=== PATIENT | male | born 1940 | race Caucasian/White ===

== ENCOUNTER 2017-10-24 10:53 | Inpatient (IN) | payer OTHER ==
[~2017-10-24] VITALS: Ht 180.3 cm; Wt 162.4 kg
[~2017-10-24 10:53] MED LIST: ARTIFICIAL TEAR15 M1 OPHTHALMIC; ASPIRIN EC325 M1 PO; ASPIRIN325 PO; ATORVASTATIN CA10 MG PO; CARVEDILOL12.5 MG PO; INDOMETHACIN SR75 M1 PO; LISINOPRIL20 MG PO; NORVASC10 MG PO; PREDNISONE 10 M10 M1 PO
[2017-10-24 11:07] VITALS: BP 190/95
[2017-10-24] MEDS ORDERED: HYDROCHLOROTH12.5 M1 PO (11:20)
[2017-10-24 11:38] LABS: BE -2.9 mmol/L (-2 to +3); HCO3 27.2 mmol/L (22.0-26.0)
[2017-10-24 11:39] LABS: PCO2 70.6 mmHg (35.0-45.0); PO2 125.4 mmHg (75.0-100.0); pH 7.203 (7.340-7.450)
[2017-10-24 12:04] LABS: MCH 31.5 pg (26.0-34.0); MCHC 34.1 g/dL (28.0-37.0); MCV 92.5 fL (80.0-100.0); MPV 9.2 fl. (7.2-11.1); NUCLEATED RBCS 0 /100WBC; PLATELET COUNT* 192 thou/uL (150-400); RBC 4.76 mil/uL (4.50-6.00); RDW-CV 13.9 % (10.5-14.5); WBC 9.9 thou/uL (4.0-11.0)
[2017-10-24 12:20] LABS: CALCIUM 8.2 mg/dL (8.5-10.1); CREATININE 0.9 mg/dL (0.6-1.3); POTASSIUM 3.9 mmol/L (3.5-5.1)
[2017-10-24 12:25] LABS: ALBUMIN 3.6 g/dL (3.4-5.0); MAGNESIUM 1.7 mg/dL (1.8-2.4); TOTAL BILIRUBIN 0.6 mg/dL (<0.1-1.0); TOTAL PROTEIN 6.9 g/dL (6.4-8.2)
[2017-10-24 12:41] LABS: ABSOLUTE MONOCYTES 0.4 thou/uL (0.0-1.2); ABSOLUTE NEUTROPHILS 8.5 thou/uL (1.6-8.1)
[2017-10-24 12:42] LABS: LARGE PLATELETS OCCASIONAL; PLATELET ESTIMATE ADEQUATE
[2017-10-24 13:40] LABS: INFLUENZA B ANTIGEN None Detected (None Detect)
[2017-10-24 14:24] LABS: BE 1.4 mmol/L (-2 to +3); PO2 106.6 mmHg (75.0-100.0)
[2017-10-24 14:33] LABS: PCO2 64.8 mmHg (35.0-45.0); pH 7.283 (7.340-7.450)
[2017-10-24 16:00] LABS: URINE BILIRUBIN NEGATIVE (Negative); URINE BLOOD 1+ (Negative); URINE CLARITY CLEAR; URINE COLOR YELLOW; URINE GLUCOSE-RANDOM NEGATIVE (Negative); URINE KETONES NEGATIVE (Negative); URINE LEUKOCYTES-REFLEX NEGATIVE (Negative); URINE NITRITE-REFLEX NEGATIVE (Negative); URINE PROTEIN 1+ (Negative); URINE SPECIFIC GRAVITY 1.015 (1.005-1.030); URINE UROBILINOGEN 0.2 E.U./dl (0.2-1.0)
--- NOTE | 2017-10-24 16:06 | 2DMMODE ---
[place] [address] 2 D/M-MODE ECHOCARDIOGRAM Name: JENNIFER NELSON Room: [address] IN [facility]#: [id number] Admission: 10/24/17 Attend Phys: Whitley Potter, Discharge: Date of : 40 Date of Service: 10/24/17 1606 Report #: [id number] THIS REPORT FOR: //name// APPROVED REPORT Study performed: 10/24/2017 14:52:50 EXAM: Comprehensive 2D, Doppler, and color-flow Echocardiogram Patient Location: In-Patient Room #: ER Status: routine BSA: 2.90 HR: 51 bpm BP: 104/56 mmHg Rhythm: NSR Other Information Technically limited study due to body habitus, poor endocardial definition, inability to position patient. Indications Cardiomegaly Echo Enhancing Agent Indication: Endocardial border delineation Agent(s) / Amount(s) Used: Optison 3 cc 2D Dimensions LVEF(%): 69.17 (>50%) IVSd: 17.10 (7-11mm) LVOT Diam: 19.61 (18-24mm) LVDd: 55.61 mm PWd: 14.22 (7-11mm) Ascending Ao: 37.42 (22-36mm) LVDs: 33.75 (25-40mm) Aortic Root: 39.90 mm Alvarado's LVEF: 69.17 % Pulmonary Valve PV Peak Canelo.: 0.86 m/s PV Peak Gr.: 2.96 mmHg Left Ventricle The left ventricle is normal size. There is normal LV segmental wall motion. There is normal left ventricular wall thickness. The left ventricular systolic function is normal. The left ventricular ejection fraction is within the normal range. LVEF is 60%. [place] [address] 2 D/M-MODE ECHOCARDIOGRAM Name: JENNIFER NELSON Room: [address] IN .R.#: [id number] Admission: 10/24/17 Attend Phys: Whitley Potter, Discharge: Date of : 40 Date of Service: 10/24/17 1606 Report #: [id number] is not technically sufficient to allow evaluation of the LV diastolic function due to atrial fibrillation. Right Ventricle The right ventricle is normal size. The right ventricular systolic function is normal. Atria The left atrium size is normal. The right atrium size is normal. Aortic Valve Mild aortic valve sclerosis. No aortic regurgitation is present. There is no aortic valvular stenosis. Mitral Valve The mitral valve is normal in structure. Tricuspid Valve The tricuspid valve is normal in structure. Pulmonic Valve The pulmonary valve is normal in structure. Pericardium There is no pericardial effusion. <Conclusion> The left ventricle is normal size. There is normal left ventricular wall thickness. The left ventricular systolic function is normal. The left ventricular ejection fraction is within the normal range. LVEF is 60%. This study is not technically sufficient to allow evaluation of the LV diastolic function due to atrial fibrillation. The right ventricle is normal size. The left atrium size is normal. Mild aortic valve sclerosis. There is no aortic valvular stenosis. The mitral valve is normal in structure. The tricuspid valve [place] [address] 2 D/M-MODE ECHOCARDIOGRAM Name: JENNIFER NELSON Room: [address] IN M.R.#: [id number] Admission: 10/24/17 Attend Phys: Whitley Potter, Discharge: Date of : 40 Date of Service: 10/24/171605 Report #: [id number] There is no pericardial effusion. There is normal LV segmental wall motion. <ELECTRONICALLY SIGNED> By: Angelo Saravia MD, FACC 10/24/171605 05 05 Angelo Saravia MD, FACC /INF
[2017-10-24 16:15] LABS: HYALINE CASTS 0-3 Few /LPF (None Seen); MUCUS None Seen strn/LPF (None Seen); SQUAMOUS 0-3 Few /LPF (0-3); URINE RBC 0-2 Rare /HPF (0-2)
[2017-10-24 16:16] LABS: BACTERIA-REFLEX 1-9 Few /HPF (None Seen); CRYSTALS None Seen /LPF (None Seen); URINE WBC-REFLEX 0-5 Rare /HPF (0-5)
[2017-10-24 16:45] VITALS: BP 151/85
[2017-10-24 16:52] VITALS: BP 173/79
--- NOTE | 2017-10-24 17:08 | EKG ---
[place] [address] ELECTROCARDIOGRAM REPORT Name: JENNIFER NELSON Room: [address] ADM IN M.R.#: [id number] Admission: 10/24/17 Attend Phys: Whitley Potter MD Discharge: Date of : 40 Report #: [id number] THIS REPORT FOR: //name// [facility] ED Test Date: 2017-10-24 Test Time: 11:29:11 Pat Name: JENNIFER NELSON Department: Room: [facility] Gender: Field Engineer: Luis E URIARTE : 1940 Requested By: Samia Armendariz Order Number: [id number] MD: Angelo Saravia Measurements Intervals [place] Rate: 71 P: [place]: QRS: 45 QRSD: 134 T: 25 QT: 427 QTc: 465 Interpretive Statements Atrial fibrillation IVCD, consider atypical RBBB Repol abnrm suggests ischemia, diffuse leads Possible ischemia now present ST (T wave) deviation now present Electronically Signed On 10-24-2017 17:07:52 CLINICAL STAFF EDUCATOR by Angelo Saravia [email or web address] <ELECTRONICALLY SIGNED> By: Angelo Saravia MD, [facility] 10/24/17 1707 1129 1129 Angelo Saravia MD, [facility] /EPI
[2017-10-24] MEDS ORDERED: ASPIR-TRIN325 MG PO (19:59)
[2017-10-24 20:00] VITALS: BP 153/78
[2017-10-25] VITALS: BP 160/74
[2017-10-25 04:01] VITALS: BP 138/79
[2017-10-25 04:59] LABS: HEMATOCRIT 42.4 % (42.0-52.0); HEMOGLOBIN 14.3 gm/dL (14.0-18.0); MCH 31.3 pg (26.0-34.0); MCHC 33.7 g/dL (28.0-37.0); MCV 92.9 fL (80.0-100.0); MPV 10.1 fl. (7.2-11.1); RBC 4.56 mil/uL (4.50-6.00); RDW-CV 14.3 % (10.5-14.5); WBC 8.9 thou/uL (4.0-11.0)
[2017-10-25 05:02] LABS: CREATININE 0.9 mg/dL (0.6-1.3); POTASSIUM 3.8 mmol/L (3.5-5.1)
[2017-10-25 05:06] LABS: ALBUMIN 3.1 g/dL (3.4-5.0); TOTAL BILIRUBIN 0.5 mg/dL (<0.1-1.0); TOTAL PROTEIN 6.2 g/dL (6.4-8.2)
[2017-10-25 05:38] LABS: BE 3.8 mmol/L (-2 to +3); HCO3 28.1 mmol/L (22.0-26.0); PCO2 41.1 mmHg (35.0-45.0); PO2 76.9 mmHg (75.0-100.0); pH 7.453 (7.340-7.450)
[2017-10-25 08:00] VITALS: BP 159/88
[2017-10-25 12:00] VITALS: BP 178/87
[2017-10-25 16:00] VITALS: BP 192/86
[2017-10-25 19:50] VITALS: BP 169/83
[2017-10-26] VITALS: BP 139/81
[2017-10-26 04:00] VITALS: BP 147/77
[2017-10-26 04:06] LABS: BE 5.7 mmol/L (-2 to +3); HCO3 29.9 mmol/L (22.0-26.0); PCO2 41.8 mmHg (35.0-45.0); PO2 71.3 mmHg (75.0-100.0); pH 7.472 (7.340-7.450)
[2017-10-26 05:40] LABS: HEMATOCRIT 42.4 % (42.0-52.0); MCH 30.8 pg (26.0-34.0); MCHC 33.1 g/dL (28.0-37.0); MCV 92.9 fL (80.0-100.0); RBC 4.56 mil/uL (4.50-6.00); RDW-CV 14.5 % (10.5-14.5); WBC 13.9 thou/uL (4.0-11.0)
[2017-10-26 05:51] LABS: CALCIUM 8.1 mg/dL (8.5-10.1); POTASSIUM 3.6 mmol/L (3.5-5.1); TOTAL BILIRUBIN 0.5 mg/dL (<0.1-1.0); TOTAL PROTEIN 6.1 g/dL (6.4-8.2)
[2017-10-26 08:45] VITALS: BP 172/88
[2017-10-26 12:00] VITALS: BP 111/81
[2017-10-26 16:00] VITALS: BP 181/84
[2017-10-26 20:00] VITALS: BP 170/89
[2017-10-27] VITALS: BP 159/82
[2017-10-27 04:00] VITALS: BP 136/68
[2017-10-27 05:07] LABS: BE 2.7 mmol/L (-2 to +3); HCO3 27.1 mmol/L (22.0-26.0); PCO2 40.9 mmHg (35.0-45.0); PO2 92.1 mmHg (75.0-100.0); pH 7.439 (7.340-7.450)
[2017-10-27 09:09] VITALS: BP 182/85
[2017-10-27 10:01] LABS: HEMATOCRIT 45.4 % (42.0-52.0); HEMOGLOBIN 14.7 gm/dL (14.0-18.0); MCH 30.9 pg (26.0-34.0); MCHC 32.4 g/dL (28.0-37.0); MCV 95.5 fL (80.0-100.0); RBC 4.76 mil/uL (4.50-6.00); RDW-CV 14.8 % (10.5-14.5); WBC 16.4 thou/uL (4.0-11.0)
[2017-10-27 10:13] LABS: ALBUMIN 3.1 g/dL (3.4-5.0); CALCIUM 8.1 mg/dL (8.5-10.1); MAGNESIUM 2.3 mg/dL (1.8-2.4); TOTAL BILIRUBIN 0.8 mg/dL (<0.1-1.0); TOTAL PROTEIN 6.6 g/dL (6.4-8.2)
[2017-10-27 10:29] LABS: POTASSIUM 3.3 mmol/L (3.5-5.1)
[2017-10-27 12:00] VITALS: BP 180/83
[2017-10-27] MEDS ORDERED: FLOMAX0.4 MG PO (12:33)
[2017-10-27] MEDS ORDERED: OSELB75 PO (12:33)
[2017-10-27] MEDS ORDERED: DOXYCYCLINE 10100 MG PO (12:33)
[2017-10-27] MEDS ORDERED: PREDNISONE 20 M20 MG PO (12:33)
[2017-10-27 13:53] VITALS: BP 180/83
[2017-10-28 09:30] VITALS: BP 180/83
== END 2017-10-27 15:23 | disposition home health service (06) | DRG 871 ==
LOC: M.ERS 10:53 → M.TBA-ER 13:39 → M.2W 13:39
PROVIDERS: Personal Emergency Response Attendant; ADMIT Internal Medicine
PROC: 5A09357 Assistance with Respiratory Ventilation, Less than 24 Consecutive Hours, Continuous Positive Airway Pressure (ICD-10-PCS; 2017-10-24)
PROC: 5A09357 Assistance with Respiratory Ventilation, Less than 24 Consecutive Hours, Continuous Positive Airway Pressure (ICD-10-PCS; principal; 2017-10-26)
PROC: 5A09357 Assistance with Respiratory Ventilation, Less than 24 Consecutive Hours, Continuous Positive Airway Pressure (ICD-10-PCS; 2017-10-27)
DX: A41.9 Sepsis, unspecified organism (principal); J96.91 Respiratory failure, unspecified with hypoxia; G93.41 Metabolic encephalopathy; J96.92 Respiratory failure, unspecified with hypercapnia; L03.116 Cellulitis of left lower limb; E87.1 Hypo-osmolality and hyponatremia; L03.115 Cellulitis of right lower limb; I48.91 Unspecified atrial fibrillation; M10.9 Gout, unspecified; E83.42 Hypomagnesemia; J11.1 Influenza due to unidentified influenza virus with other respiratory manifestations; I11.9 Hypertensive heart disease without heart failure; Z79.899 Other long term (current) drug therapy; Z90.49 Acquired absence of other specified parts of digestive tract; Z88.8 Allergy status to other drugs, medicaments and biological substances; Z87.891 Personal history of nicotine dependence; Z28.21 Immunization not carried out because of patient refusal

== ENCOUNTER → 2018-01-16 | Outpatient (CLI) | payer OTHER ==
[~2018-01-16] MED LIST changes: +ACCUNEB SO1.25 MG/1 INH; +ALLOPURINOL 10100 M1 PO; +ASPIR 8181 MG PO; +ASPIR-TRIN325 MG PO; +COZAAR 50 MG TA50 M2 PO; +DOXYCYCLINE 10100 MG PO; +FLOMAX0.4 MG PO; +HYDROCHLOROTH12.5 M1 PO; +KLOR-CON 1010 MEQ PO; +LASIX 40 MG TAB40 M2 PO; +LEVAQUIN 750 M750 MG PO; +MAGOX 400400 MG PO; +MINOCIN50 MG PO; +OSELB75 PO; +PREDNISONE 10 M10 MG PO; +PREDNISONE 20 M20 MG PO; +SAW PALMETTO450 MG PO; +VENTOLIN HFA INH8 GM INH; +XARELTO10 MG PO; +XARELTO20 MG PO
== END ==
LOC: M.ULTRA 13:00
DX: L97.919 Non-pressure chronic ulcer of unspecified part of right lower leg with unspecified severity (principal); L97.929 Non-pressure chronic ulcer of unspecified part of left lower leg with unspecified severity; I10 Essential (primary) hypertension; I48.91 Unspecified atrial fibrillation

== ENCOUNTER → 2018-01-20 | Outpatient (CLI) | payer OTHER ==
[2018-01-20 15:47] LABS: CALCIUM 8.8 mg/dL (8.5-10.1); CREATININE 1.5 mg/dL (0.6-1.3); POTASSIUM 4.5 mmol/L (3.5-5.1)
== END ==
LOC: M.LAB 15:12
PROVIDERS: Nurse Practitioner
DX: I50.32 Chronic diastolic (congestive) heart failure (principal)

== ENCOUNTER 2018-04-20 23:10 | Inpatient (IN) | payer OTHER ==
[~2018-04-20] VITALS: Ht 180.3 cm; Wt 167.8 kg
[2018-04-20 23:10] VITALS: BP 193/85
[~2018-04-20 23:10] MED LIST changes: -ACCUNEB SO1.25 MG/1 INH; -ALLOPURINOL 10100 M1 PO; -ASPIR 8181 MG PO; -COZAAR 50 MG TA50 M2 PO; -KLOR-CON 1010 MEQ PO; -LASIX 40 MG TAB40 M2 PO; -LEVAQUIN 750 M750 MG PO; -MAGOX 400400 MG PO; -MINOCIN50 MG PO; -PREDNISONE 10 M10 MG PO; -SAW PALMETTO450 MG PO; -VENTOLIN HFA INH8 GM INH; -XARELTO10 MG PO; -XARELTO20 MG PO
[2018-04-20] MEDS ORDERED: XARELTO10 MG PO (23:22)
[2018-04-20] MEDS ORDERED: KLOR-CON 1010 MEQ PO (23:22)
[2018-04-20] MEDS ORDERED: LASIX 40 MG TAB40 M2 PO (23:23)
[2018-04-20] MEDS ORDERED: MAGOX 400400 MG PO (23:23)
[2018-04-20] MEDS ORDERED: COZAAR 50 MG TA50 M2 PO (23:24)
[2018-04-20] MEDS ORDERED: SAW PALMETTO450 MG PO (23:25)
[2018-04-20 23:51] LABS: HEMATOCRIT 44.7 % (42.0-52.0); HEMOGLOBIN 14.9 gm/dL (14.0-18.0); MCH 31.2 pg (26.0-34.0); MCHC 33.3 g/dL (28.0-37.0); MCV 93.8 fL (80.0-100.0); MPV 9.7 fl. (7.2-11.1); NUCLEATED RBCS 0 /100WBC; PLATELET COUNT* 223 thou/uL (150-400); RBC 4.76 mil/uL (4.50-6.00); RDW-CV 14.2 % (10.5-14.5); WBC 15.1 thou/uL (4.0-11.0)
[2018-04-20 23:59] LABS: BE -0.6 mmol/L (-2 to +3); HCO3 25.4 mmol/L (22.0-26.0); PCO2 46.6 mmHg (35.0-45.0); pH 7.354 (7.340-7.450)
[2018-04-21 00:04] LABS: PO2 320.2 mmHg (75.0-100.0)
[2018-04-21 00:07] LABS: ANION GAP 6 mmol/L (7-16); BUN 24 mg/dL (7-18); CALCIUM 8.8 mg/dL (8.5-10.1); CHLORIDE 100 mmol/L (98-107); CO2 28 mmol/L (21-32); CREATININE 1.3 mg/dL (0.6-1.3); GLUCOSE 219 mg/dL (70-99); POTASSIUM 4.3 mmol/L (3.5-5.1); SODIUM 134 mmol/L (136-145)
[2018-04-21 00:18] LABS: ALBUMIN 3.2 g/dL (3.4-5.0); ALKALINE PHOSPHATASE 101 U/L (46-116); NT-PRO BRAIN NAT PEPTIDE 402 pg/mL (<300); SGOT 19 U/L (15-37); SGPT 16 U/L (30-65); TOTAL BILIRUBIN 0.4 mg/dL (<0.1-1.0); TOTAL PROTEIN 7.3 g/dL (6.4-8.2); TROPONIN-I LEVEL <0.06 ng/mL (<0.06)
[2018-04-21 00:19] LABS: URINE BILIRUBIN NEGATIVE (Negative); URINE BLOOD NEGATIVE (Negative); URINE CLARITY CLEAR; URINE COLOR YELLOW; URINE GLUCOSE-RANDOM NEGATIVE (Negative); URINE KETONES NEGATIVE (Negative); URINE LEUKOCYTES-REFLEX NEGATIVE (Negative); URINE NITRITE-REFLEX NEGATIVE (Negative); URINE PROTEIN NEGATIVE (Negative); URINE SPECIFIC GRAVITY 1.015 (1.005-1.030); URINE UROBILINOGEN 0.2 E.U./dl (0.2-1.0)
[2018-04-21 00:24] LABS: INR 1.3; PROTIME 12.3 Seconds (9.20-11.50)
[2018-04-21 01:02] LABS: ABSOLUTE BASOPHILS 0.2 thou/uL (0.0-0.2); ABSOLUTE LYMPHOCYTES 0.5 thou/uL (0.8-5.3); ABSOLUTE MONOCYTES 0.3 thou/uL (0.0-1.2); ABSOLUTE NEUTROPHILS 14.2 thou/uL (1.6-8.1); PLATELET ESTIMATE ADEQUATE
[2018-04-21 01:03] LABS: TOXIC GRANULATION 1+
[2018-04-21 01:55] VITALS: BP 137/66
[2018-04-21 02:15] VITALS: BP 129/60
[2018-04-21 04:00] VITALS: BP 131/72
[2018-04-21 08:00] VITALS: BP 152/77
--- NOTE | 2018-04-21 10:25 | EKG ---
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: 00 : 1940 Requested By: Jess Peacock Order Number: [id number] MD: Markell Archer Measurements Intervals [place] Rate: 102 P: [place]: QRS: -17 QRSD: 94 T: 33 QT: 335 QTc: 437 Interpretive Statements afib Inferior infarct, old Anteroseptal infarct, old Compared to ECG 10/24/2017 11:29:11 Myocardial infarct finding now present Atrial fibrillation no longer present Early repolarization no longer present Possible ischemia no longer present Electronically Signed On 04-21-2018 10:25:32 CDT by Markell Archer [email or web address] <ELECTRONICALLY SIGNED> By: Markell Archer MD, FACC 04/21/18 1025 2314 2314 Markell Archer MD, FAC /EPI
[2018-04-21 12:49] VITALS: BP 130/43
[2018-04-21 13:25] LABS: CALCIUM 8.7 mg/dL (8.5-10.1); CREATININE 1.3 mg/dL (0.6-1.3); MAGNESIUM 1.6 mg/dL (1.8-2.4); POTASSIUM 4.6 mmol/L (3.5-5.1); TOTAL BILIRUBIN 0.5 mg/dL (<0.1-1.0); TOTAL PROTEIN 7.3 g/dL (6.4-8.2)
--- NOTE | 2018-04-21 16:47 | 2DMMODE ---
[place] [address] 2 D/M-MODE ECHOCARDIOGRAM Name: JENNIFER NELSON Room: [address] IN [facility]#: [id number] Admission: 04/21/18 Attend Phys: Parth Bucio Discharge: Date of : 40 Date of Service: 04/21/18 1646 Report #: [id number] THIS REPORT FOR: //name// APPROVED REPORT Study performed: 04/21/2018 15:44:12 EXAM: Comprehensive 2D, Doppler, and color-flow Echocardiogram Patient Location: In-Patient Room #: 210 Status: routine BSA: 2.73 HR: 76 bpm BP: 130/43 mmHg Rhythm: Atrial Fibrillation Other Information Study Quality: Poor Technically limited study due to body habitus, inability to position patient. Indications Atrial Fibrillation Dyspnea 2D Dimensions LVEF(%): 66.22 (>50%) IVSd: 18.84 (7-11mm) LVOT Diam: 20.38 (18-24mm) LVDd: 46.10 mm PWd: 15.84 (7-11mm) LVDs: 29.30 (25-40mm) Aortic Root: 38.01 mm Alvarado's LVEF: 66.22 % Pulmonary Valve PV Peak Canelo.: 1.03 m/s PV Peak Gr.: 4.22 mmHg Tricuspid Valve RAP Estimate: 5.00 mmHg TR Peak Gr.: 35.87 mmHg RVSP: 40.87 mmHg PA Pressure: 40.87 mmHg Left Ventricle The left ventricle is normal size. There is normal LV segmental wall motion. Moderate concentric left [place] [address] 2 D/M-MODE ECHOCARDIOGRAM Name: JENNIFER NELSON Room: [address] IN [facility]#: [id number] Admission: 04/21/18 Attend Phys: Parth Bucio Discharge: Date of : 40 Date of Service: 04/21/18 1646 Report #: [id number] ventricular systolic function is normal. The left ventricular ejection fraction is within the normal range. LVEF is 60-65%. This study is not technically sufficient to allow evaluation of the LV diastolic function due to atrial fibrillation. Right Ventricle Right ventricle is mildly dilated. The right ventricular systolic function is normal. Atria Left atrium is moderately dilated. The right atrium size is normal. Aortic Valve The aortic valve is not well visualized. Aortic valve is grossly normal in structure. No aortic regurgitation is present. There is no aortic valvular stenosis. Mitral Valve The mitral valve is normal in structure. There is no mitral valve regurgitation noted. No evidence of mitral valve stenosis. Tricuspid Valve The tricuspid valve is normal in structure. Mild tricuspid regurgitation. Moderate pulmonary hypertension. Pulmonic Valve Pulmonic valve is not well visualized. Trace pulmonic regurgitation. Great Vessels The aortic root is normal in size. IVC is normal in size and collapses with >50% inspiration Pericardium There is no pericardial effusion. <Conclusion> Techinically limited study. LVEF is 60-65%. There is normal LV segmental wall motion. Left atrium is moderately dilated. No evidence of mitral valve stenosis. There is no mitral valve regurgitation noted. Right ventricle is mildly dilated. The aortic valve [place] [address] 2 D/M-MODE ECHOCARDIOGRAM Name: LESLIEJENNIFER E Room: [address] IN .R.#: [id number] Admission: 04/21/18 Attend Phys: Parth Bucio Discharge: Date of : 40 Date of Service: 04/21/181645 Report #: [id number] Aortic valve is grossly normal in structure. No aortic regurgitation is present. <ELECTRONICALLY SIGNED> By: Markell Archer MD, [facility] 04/21/181645 45 45 Markell Archer MD, FACC /INF
[2018-04-21 20:33] VITALS: BP 126/51
[2018-04-22] VITALS: BP 124/40
[2018-04-22 04:00] VITALS: BP 146/69
[2018-04-22 04:45] LABS: ABSOLUTE BASOPHILS 0.1 thou/uL (0.0-0.2); ABSOLUTE LYMPHOCYTES 0.9 thou/uL (0.8-5.3); ABSOLUTE MONOCYTES 0.4 thou/uL (0.0-1.2); BASOPHILS 0.6 %; HEMATOCRIT 42.2 % (42.0-52.0); HEMOGLOBIN 13.7 gm/dL (14.0-18.0); LYMPHOCYTES 6.2 %; MCH 30.8 pg (26.0-34.0); MCHC 32.6 g/dL (28.0-37.0); MCV 94.6 fL (80.0-100.0); MONOCYTES 2.5 %; NUCLEATED RBCS 0 /100WBC; PLATELET COUNT* 227 thou/uL (150-400); POLYS 90.7 %; RBC 4.45 mil/uL (4.50-6.00); RDW-CV 14.5 % (10.5-14.5); WBC 14.3 thou/uL (4.0-11.0)
[2018-04-22 05:06] LABS: CALCIUM 8.9 mg/dL (8.5-10.1); CREATININE 1.4 mg/dL (0.6-1.3); MAGNESIUM 1.8 mg/dL (1.8-2.4); POTASSIUM 4.4 mmol/L (3.5-5.1); TOTAL BILIRUBIN 0.3 mg/dL (<0.1-1.0); TOTAL PROTEIN 7.1 g/dL (6.4-8.2)
[2018-04-22 08:00] VITALS: BP 119/71
[2018-04-22 11:57] VITALS: BP 149/80
--- NOTE | 2018-04-22 12:42 | CON ---
[address] [address] CONSULTATION Name: JENNIFER NELSON Room: [address] IN M.R.#: [id number] Admission: 04/21/18 Attend Phys: Shereen Zhu Discharge: Date of : 40 Report #: [id number] THIS REPORT FOR: //name// CC: Todd Bucio DATE OF SERVICE: 04/21/2018 CONSULT REQUESTED BY: Dr. Potter. INDICATION FOR CONSULTATION: Shortness of breath. HISTORY OF PRESENT ILLNESS: This is a 77-year-old gentleman. His past medical history is as mentioned below. The patient does have a history of atrial fibrillation in the past, and the patient has not been having regular medical care, therefore it is not known at this time as to whether this atrial fibrillation is paroxysmal or persistent. The patient was noted to have atrial fibrillation during a previous admission in September as well as in 2012. He only has a history of limited smoking when he was young. Back in September, he did have significant hypercarbic respiratory failure with pCO2 up to 71 recorded. At this time, the patient is again admitted after having had a fall. He also has had hypoxemia recorded at home with O2 saturations as checked at home being up to 44%. The patient does have oxygen at home, but does not use it regularly. He has had swelling of lower extremities, which is progressively increasing over a period of time. He does have some calf pain. He does have increasing shortness of breath on exertion as well. There is not much of a cough or sputum production. He has had occasional nasal discharge. There is no sore throat. There is no chest pain. He does not have heartburn. He does have a longstanding history of disturbed sleep at night as well as sleepiness during the day. He was placed on a BiPAP on admission, which he was able to tolerate only to a limited extent. He answers to the negative for 12 questions for review of systems except as mentioned above. PAST MEDICAL HISTORY: Atrial fibrillation. Clinical history consistent with obstructive sleep apnea as well as obesity hypoventilation syndrome, not previously diagnosed with either longstanding fluid overload. Gout, tonsillectomy, Leiva's palsy in 2012. Echo performed in September shows a left ventricular ejection fraction of 60% without elevation in right heart pressures. SOCIAL HISTORY: He used to smoke an occasional cigar, 1 cigar every couple of days. He discontinued when he was in his 40s, has been off tobacco products since then. There is no known history of heavy alcohol use [place] [address] CONSULTATION Name: JENNIFER NELSON Room: [address]#: [id number] Admission: 04/21/18 Attend Phys: Shereen Zhu Discharge: Date of : 40 Report #: [id number] ALLERGIES: HE IS REPORTED TO BE ALLERGIC TO AMLODIPINE. CURRENT MEDICATIONS: The list is in [employer] and this is reviewed. FAMILY HISTORY: No pertinent family history. PHYSICAL EXAMINATION: GENERAL: He is alert, awake and oriented; however, answers questions to a limited extent. His daughters are in the room and therefore mainly they provided the history. His body mass index is elevated to 51.2. HEENT: Head is normocephalic and atraumatic. Pupils are equal and reactive. There is no throat erythema. He has a narrow airway. NECK: Does not show raised JVP, asymmetry, mass or lymph nodes. CHEST: Symmetrical expansion on inspection and palpation. On auscultation, breath sounds are equal, decreased. No added sounds. HEART: Irregular, no murmur. ABDOMEN: Mildly distended, nontender. EXTREMITIES: Lower extremities show 3+ edema. There is a discomfort on palpation of calves. There is evidence of chronic venous insufficiency. SKIN: However, is dry and intact. NEUROLOGICAL: Moves all extremities bilaterally equally and spontaneously with no focal deficit identified. The patient's chest x-ray is reviewed. There is a radiopaque density at the left lung base. Suspect an infiltrate in this region; however, he has previously had scarring in this region as well. The patient's lab work including arterial blood gas as well as CBC and chemistries performed last night as well as coagulation studies in [facility] reviewed. Urinalysis in [facility] reviewed. ASSESSMENT AND PLAN: 1. Acute hypoxemic and hypercarbic respiratory failure. This primarily appears to be secondary to fluid overload with atrial fibrillation in the background of obstructive sleep apnea and obesity hypoventilation syndrome. The patient would benefit from a BiPAP while asleep. In fact, he would benefit from sleep study as an outpatient as well. This was discussed with the patient and the patient declined. 2. Fluid overload. Agree with diuresis. I will go ahead and do labs today and see where we stand. If the patient's creatinine is elevated or rising, then I will give him some albumin as well. Suggest watching electrolytes closely. 3. Atrial fibrillation. Cardiology has been consulted. I would therefore defer to them. He did have rapid ventricular response initially, which is under control. He noted that he is on amiodarone. I would like to do an echo as well and compare with the previous echo. 4. Obstructive sleep apnea and obesity hypoventilation syndrome. He does appear to have these on clinical grounds. He has not had a sleep study in the [address] [address] CONSULTATION Name: JENNIFER NELSON Room: [address] IN .R.#: [id number] Admission: 04/21/18 Attend Phys: Shereen Zhu Discharge: Date of : 40 Report #: [id number] past. I would recommend that he be placed in a positive airway pressure device while asleep. The patient is declining at this time as above. 5. Pulmonary infiltrates/scarring at the left lung base. Agree with broad-spectrum antibiotics. We will do a CT chest and then evaluate further. 6. Evaluation for thromboembolic phenomenon/edema. Thromboembolism appears unlikely as D-dimer is not significantly elevated. Regardless, I will do venous Dopplers as well for the sake of completion. We will recommend avoiding giving him IV dye for now. 7. Morbid obesity. Recommend weight loss. Thanks for this consultation. <ELECTRONICALLY SIGNED> By: Yovany Sands MD 04/22/18 1242 1244 [id number] Sands MD /nt
[2018-04-22 16:19] VITALS: BP 138/60
[2018-04-22 20:20] VITALS: BP 115/70
[2018-04-23] VITALS: BP 133/66
[2018-04-23 04:00] VITALS: BP 150/72
[2018-04-23 04:58] LABS: CALCIUM 8.5 mg/dL (8.5-10.1); CREATININE 1.4 mg/dL (0.6-1.3); MAGNESIUM 2.2 mg/dL (1.8-2.4); POTASSIUM 4.5 mmol/L (3.5-5.1)
[2018-04-23 08:00] VITALS: BP 164/83
[2018-04-23 12:46] VITALS: BP 130/57
[2018-04-23 16:00] VITALS: BP 122/68
[2018-04-23 20:19] VITALS: BP 150/79
[2018-04-24] VITALS: BP 123/41
[2018-04-24 04:00] VITALS: BP 113/56
[2018-04-24 04:54] LABS: HEMATOCRIT 42.5 % (42.0-52.0); HEMOGLOBIN 13.6 gm/dL (14.0-18.0); MCH 30.6 pg (26.0-34.0); MCHC 32.1 g/dL (28.0-37.0); MCV 95.6 fL (80.0-100.0); MPV 9.5 fl. (7.2-11.1); RBC 4.44 mil/uL (4.50-6.00); RDW-CV 14.7 % (10.5-14.5); WBC 13.3 thou/uL (4.0-11.0)
[2018-04-24 05:13] LABS: CALCIUM 8.8 mg/dL (8.5-10.1); CREATININE 1.2 mg/dL (0.6-1.3); MAGNESIUM 2.4 mg/dL (1.8-2.4); POTASSIUM 4.2 mmol/L (3.5-5.1)
[2018-04-24 08:40] VITALS: BP 138/67
[2018-04-24] MEDS ORDERED: PREDNISONE 10 M10 MG PO (09:25)
[2018-04-24] MEDS ORDERED: VENTOLIN HFA INH8 GM INH (09:25)
[2018-04-24] MEDS ORDERED: ASPIR 8181 MG PO (09:25)
[2018-04-24] MEDS ORDERED: XARELTO20 MG PO (09:25)
[2018-04-24] MEDS ORDERED: LASIX 40 MG TAB40 M2 PO (09:25)
[2018-04-24] MEDS ORDERED: LEVAQUIN 750 M750 MG PO (09:25)
[2018-04-24 12:07] VITALS: BP 135/65
[2018-04-24 16:18] VITALS: BP 156/85
[2018-04-24 20:20] VITALS: BP 164/61
[2018-04-25] VITALS: BP 119/69
[2018-04-25 04:00] VITALS: BP 146/82
[2018-04-25 07:45] VITALS: BP 151/81
[2018-04-25 11:38] VITALS: BP 131/65
[2018-04-25 11:54] VITALS: BP 131/65
--- NOTE | 2018-05-05 09:13 | CON ---
[address] [address] CONSULTATION Name: JENNIFER NELSON Room: [address] IN M.R.#: [id number] Admission: 04/21/18 Attend Phys: Shereen Zhu Discharge: 04/25/18 Date of : 40 Report #: [id number] THIS REPORT FOR: //name// CC: Todd Bucio DATE OF SERVICE: 04/21/2018 REQUESTING PHYSICIAN: Dr. Bucio. REASON FOR CONSULTATION: CHF, AFib, and fall. HISTORY OF PRESENT ILLNESS: The patient is a 77-year-old morbidly, obese man who came to the Emergency Room when he collapsed in his kitchen. His oxygenation was very low when he came in to the Emergency Room, was noted to be in atrial fibrillation with a controlled ventricular response. He did not have chest pain or pressure. His initial cardiac troponin level was normal and it was slightly abnormal this morning at 0.06. Clinically, he denies chest pain. He has a history of chronic lower extremity swelling and wound care requirements. He is fully anticoagulated and denies headache, blurry vision, slurred speech, or neuro symptoms of visual changes. He had been on diuretic therapy with Lasix, but had been increasing fluid retention over the last 2 days. Most of the history was obtained from his son-in-law who was present for my examination, the patient really has poor recollection of his medical therapies. His presenting ECG demonstrated atrial fibrillation with a controlled ventricular response, but no diagnostic ST-T wave abnormalities. PAST MEDICAL HISTORY: He has a remote history of cardiac catheterization demonstrating normal coronary arteries in 2011; morbid obesity; atrial fibrillation diagnosed in 2014, was placed on rate control strategy; chronic lower extremity wound, nonhealing ulcers and followed by wound care; and hypertension. HOME MEDICATIONS: Lasix 40 mg daily, Coreg 12.5 mg p.o. b.i.d., atorvastatin 10 mg daily and indomethacin, baby aspirin, Xarelto 10 mg daily, losartan 100 mg daily. ALLERGIES: [place] [address] CONSULTATION Name: JENNIFER NELSON Room: [address]#: [id number] Admission: 04/21/18 Attend Phys: Shereen Zhu Discharge: 04/25/18 Date of : 40 Report #: [id number] SOCIAL HISTORY: No alcohol or tobacco currently. PAST SURGICAL HISTORY: No recent surgery. REVIEW OF SYSTEMS: MUSCULOSKELETAL: Positive falls and generalized weakness. GENERAL: No fevers or chills. CARDIOVASCULAR: No chest pain. Positive for shortness of breath. No palpitations. GENITOURINARY: No dysuria or hematuria. GASTROINTESTINAL: No hematemesis or melena. SKIN: Positive rash and redness in his lower extremities along with weeping in his swelling areas in his legs. NEUROLOGIC: As noted above. Denies focal numbness, weakness of an extremity, visual changes, facial numbness, or slurred speech. PHYSICAL EXAMINATION: VITAL SIGNS: His weight on presentation is 368 pounds. Blood pressure is elevated at 190/90; on presentation this morning, it is 131/72; his pulse is 96 in AFib; temperature is 36.5. GENERAL: This is an obese, elderly male. He is a poor historian. He is in no apparent distress, sitting up on the edge of the bed. HEENT: He has no evidence of trauma. Eyes, EOMs are intact. No facial asymmetry. Mouth: Oral mucosa is moist. Tongue is midline. NECK: Supple. No jugular venous distention. CARDIOVASCULAR: Irregular. I cannot hear a murmur or rub. LUNGS: Diminished breath sounds bilaterally, but no rales. ABDOMEN: Obese, nontender. EXTREMITIES: There is nonpitting edema, severe, 3-4+ bilaterally with pretibial erythema and weeping clear fluid. Chest x-ray shows decreasing depth of aeration with cardiomegaly and ectasia of the aorta, left lower lobe atelectasis and small pleural effusion. No congestive heart failure or pneumothorax. LABORATORY DATA: Hemoglobin 14.9, white blood cell count 15.1, platelet count is 223,000. INR is 1.3. Sodium is 134, potassium is 4.3, BUN is 24, creatinine is 1.3, glucose 219. Troponin I is 0.06 x 3 sets. IMPRESSION AND PLAN: 1. Acute congestive heart failure, diastolic. I would continue with aggressive diuresis. I will check an echocardiogram to assess LV function. Historically, it has been normal. 2. Morbid obesity, right-sided heart failure. He probably [place] [address] CONSULTATION Name: LESLIEJENNIFER E Room: [address] IN M.R.#: [id number] Admission: 04/21/18 Attend Phys: Shereen Zhu Discharge: 04/25/18 Date of : 40 Report #: [id number] 3. Atrial fibrillation. He is rate controlled. I would continue with Xarelto, but his current dosing strategy is not dosed appropriately for his GFR of 50-70, he should be on 20 mg dosing. He should discontinue aspirin, though. 4. Hypertension. This seems to have improved with treatment of his respiratory failure. 5. Mechanical fall. Physical therapy will be consulted. 6. Wound care. He does have an elevated white blood cell count and may require antibiotics, we will defer this to our hospital doctors. <ELECTRONICALLY SIGNED> By: Markell Archer MD, FACC 05/05/18 0913 0953 26Markell Archer MD, FACC /nt
== END 2018-04-25 13:26 | disposition home or self-care (01) | DRG 177 ==
LOC: M.ERS 23:10 → M.TBA-ER 04-21 01:02 → M.2W 04-21 01:02
PROVIDERS: Emergency Medicine; Internal Medicine; Internal Medicine Cardiovascular Disease; Internal Medicine Critical Care Medicine; ADMIT Internal Medicine
DX: J15.6 Pneumonia due to other Gram-negative bacteria (principal); J96.02 Acute respiratory failure with hypercapnia; J96.01 Acute respiratory failure with hypoxia; I50.43 Acute on chronic combined systolic (congestive) and diastolic (congestive) heart failure; E66.2 Morbid (severe) obesity with alveolar hypoventilation; I74.9 Embolism and thrombosis of unspecified artery; J44.1 Chronic obstructive pulmonary disease with (acute) exacerbation; R65.10 Systemic inflammatory response syndrome (SIRS) of non-infectious origin without acute organ dysfunction; J44.0 Chronic obstructive pulmonary disease with (acute) lower respiratory infection; Z68.43 Body mass index [BMI] 50.0-59.9, adult; I11.0 Hypertensive heart disease with heart failure; I48.91 Unspecified atrial fibrillation; M10.9 Gout, unspecified; E87.70 Fluid overload, unspecified; I87.2 Venous insufficiency (chronic) (peripheral); Z88.8 Allergy status to other drugs, medicaments and biological substances; Z79.899 Other long term (current) drug therapy; W18.39XA Other fall on same level, initial encounter; Y93.89 Activity, other specified; Y92.89 Other specified places as the place of occurrence of the external cause; Y99.8 Other external cause status

== ENCOUNTER 2018-05-07 20:54 | Inpatient (IN) | payer OTHER ==
[~2018-05-07] VITALS: Ht 180.3 cm; Wt 162.4 kg
[~2018-05-07 20:54] MED LIST changes: +ASPIR 8181 MG PO; +COZAAR 50 MG TA50 M2 PO; +KLOR-CON 1010 MEQ PO; +LASIX 40 MG TAB40 M2 PO; +LEVAQUIN 750 M750 MG PO; +MAGOX 400400 MG PO; +PREDNISONE 10 M10 MG PO; +SAW PALMETTO450 MG PO; +VENTOLIN HFA INH8 GM INH; +XARELTO10 MG PO; +XARELTO20 MG PO
[2018-05-07 21:06] VITALS: BP 126/77
[2018-05-07 21:39] LABS: ABSOLUTE BASOPHILS 0.2 thou/uL (0.0-0.2); ABSOLUTE EOSINOPHILS 0.2 thou/uL (0.0-0.7); ABSOLUTE LYMPHOCYTES 1.7 thou/uL (0.8-5.3); ABSOLUTE MONOCYTES 0.9 thou/uL (0.0-1.2); ABSOLUTE NEUTROPHILS 8.4 thou/uL (1.6-8.1); BASOPHILS 1.4 %; EOSINOPHILS 1.6 %; HEMATOCRIT 42.6 % (42.0-52.0); HEMOGLOBIN 13.8 gm/dL (14.0-18.0); LYMPHOCYTES 14.9 %; MCH 30.7 pg (26.0-34.0); MCHC 32.3 g/dL (28.0-37.0); MCV 94.9 fL (80.0-100.0); MONOCYTES 7.7 %; MPV 9.6 fl. (7.2-11.1); NUCLEATED RBCS 0 /100WBC; PLATELET COUNT* 232 thou/uL (150-400); POLYS 74.4 %; RBC 4.49 mil/uL (4.50-6.00); RDW-CV 14.3 % (10.5-14.5); WBC 11.3 thou/uL (4.0-11.0)
[2018-05-07 21:51] LABS: BE 2.2 mmol/L (-2 to +3); HCO3 26.4 mmol/L (22.0-26.0); PCO2 39.6 mmHg (35.0-45.0); PO2 105.3 mmHg (75.0-100.0); pH 7.442 (7.340-7.450)
[2018-05-07 21:53] LABS: ANION GAP 4 mmol/L (7-16); BUN 27 mg/dL (7-18); CHLORIDE 101 mmol/L (98-107); CO2 30 mmol/L (21-32); CREATININE 1.4 mg/dL (0.6-1.3); GLUCOSE 112 mg/dL (70-99); POTASSIUM 4.2 mmol/L (3.5-5.1); SODIUM 135 mmol/L (136-145)
[2018-05-07 22:04] LABS: ALBUMIN 2.9 g/dL (3.4-5.0); ALKALINE PHOSPHATASE 69 U/L (46-116); LIPASE 114 U/L (73-393); NT-PRO BRAIN NAT PEPTIDE 404 pg/mL (<300); SGOT 22 U/L (15-37); SGPT 27 U/L (30-65); TOTAL BILIRUBIN 0.5 mg/dL (<0.1-1.0); TROPONIN-I LEVEL <0.06 ng/mL (<0.06)
[2018-05-07 22:11] LABS: INR 1.2; PROTIME 12.6 Seconds (9.20-11.50)
[2018-05-07 23:05] VITALS: BP 124/65
[2018-05-08 04:00] VITALS: BP 129/57
[2018-05-08 04:51] LABS: HEMATOCRIT 40.3 % (42.0-52.0); HEMOGLOBIN 13.1 gm/dL (14.0-18.0); MCH 30.9 pg (26.0-34.0); MCHC 32.6 g/dL (28.0-37.0); MCV 94.9 fL (80.0-100.0); MPV 9.7 fl. (7.2-11.1); RBC 4.24 mil/uL (4.50-6.00); RDW-CV 14.4 % (10.5-14.5); WBC 9.9 thou/uL (4.0-11.0)
[2018-05-08 05:22] LABS: ALBUMIN 2.6 g/dL (3.4-5.0); CALCIUM 8.4 mg/dL (8.5-10.1); CREATININE 1.2 mg/dL (0.6-1.3); TOTAL BILIRUBIN 0.5 mg/dL (<0.1-1.0); TOTAL PROTEIN 5.9 g/dL (6.4-8.2)
[2018-05-08 08:00] VITALS: BP 134/48
--- NOTE | 2018-05-08 11:03 | EKG ---
[place] [address] ELECTROCARDIOGRAM REPORT Name: JENNIFER NELSON Room: [address] ADM IN .R.#: [id number] Admission: 05/07/18 Attend Phys: Bethel Horton MD Discharge: Date of : 40 Report #: [id number] THIS REPORT FOR: //name// [facility] ED Test Date: 2018-05-07 Test Time: 21:07:31 Pat Name: JENNIFER NELSON Department: Room: [facility] Gender: M Upper Trimmer: : 1940 Requested By: Jess Peacock Order Number: [id number] MD: Frederic Hewitt Measurements Intervals [place] Rate: 66 P: [place]: QRS: 16 QRSD: 102 T: -1 QT: 392 QTc: 411 Interpretive Statements Atrial fibrillation Low voltage, precordial leads Abnormal R-wave progression, late transition Borderline T abnormalities, inferior leads Compared to ECG 04/20/2018 23:14:10 no change Electronically Signed On 05-08-2018 11:03:30 CDT by Frederic Hewitt [email or web address] <ELECTRONICALLY SIGNED> By: Frederic Hewitt MD, [facility] 05/08/18 1103 06 Frederic Hewitt MD, [facility] /EPI
[2018-05-08 11:50] VITALS: BP 135/58
[2018-05-08 12:51] LABS: URINE BILIRUBIN NEGATIVE (Negative); URINE BLOOD NEGATIVE (Negative); URINE CLARITY CLEAR; URINE COLOR YELLOW; URINE GLUCOSE-RANDOM NEGATIVE (Negative); URINE KETONES NEGATIVE (Negative); URINE LEUKOCYTES-REFLEX NEGATIVE (Negative); URINE NITRITE-REFLEX NEGATIVE (Negative); URINE PROTEIN NEGATIVE (Negative)
[2018-05-08 15:53] VITALS: BP 119/74
[2018-05-08 20:11] VITALS: BP 137/58
[2018-05-09] VITALS: BP 118/57
[2018-05-09 04:00] VITALS: BP 149/59
[2018-05-09 05:31] LABS: ABSOLUTE BASOPHILS 0.2 thou/uL (0.0-0.2); ABSOLUTE EOSINOPHILS 0.2 thou/uL (0.0-0.7); ABSOLUTE LYMPHOCYTES 1.9 thou/uL (0.8-5.3); ABSOLUTE MONOCYTES 0.8 thou/uL (0.0-1.2); ABSOLUTE NEUTROPHILS 7.8 thou/uL (1.6-8.1); BASOPHILS 1.7 %; EOSINOPHILS 1.6 %; HEMATOCRIT 39.2 % (42.0-52.0); HEMOGLOBIN 12.7 gm/dL (14.0-18.0); LYMPHOCYTES 17.3 %; MCH 30.8 pg (26.0-34.0); MCHC 32.5 g/dL (28.0-37.0); MCV 94.8 fL (80.0-100.0); MONOCYTES 7.5 %; MPV 9.9 fl. (7.2-11.1); NUCLEATED RBCS 0 /100WBC; PLATELET COUNT* 238 thou/uL (150-400); POLYS 71.9 %; RBC 4.13 mil/uL (4.50-6.00); WBC 10.8 thou/uL (4.0-11.0)
[2018-05-09 05:49] LABS: CALCIUM 8.5 mg/dL (8.5-10.1); CREATININE 1.2 mg/dL (0.6-1.3); POTASSIUM 4.1 mmol/L (3.5-5.1)
[2018-05-09 05:53] LABS: PREALBUMIN 16.5 mg/dL (18.0-35.7)
[2018-05-09 08:30] VITALS: BP 151/51
[2018-05-09 12:38] VITALS: BP 128/59
[2018-05-09 16:30] VITALS: BP 106/51
[2018-05-09 19:57] VITALS: BP 139/66
[2018-05-10] VITALS (7 sets, daily range): BP systolic 116–145; BP diastolic 45–73
[2018-05-10 04:59] LABS: HEMATOCRIT 39.4 % (42.0-52.0); HEMOGLOBIN 12.7 gm/dL (14.0-18.0); MCH 30.5 pg (26.0-34.0); MCHC 32.1 g/dL (28.0-37.0); MPV 10.1 fl. (7.2-11.1); NUCLEATED RBCS 0 /100WBC; PLATELET COUNT* 238 thou/uL (150-400); RBC 4.15 mil/uL (4.50-6.00); WBC 10.6 thou/uL (4.0-11.0)
[2018-05-10 05:34] LABS: ABSOLUTE LYMPHOCYTES 1.4 thou/uL (0.8-5.3); ABSOLUTE MONOCYTES 0.3 thou/uL (0.0-1.2); ABSOLUTE NEUTROPHILS 8.9 thou/uL (1.6-8.1); ANISOCYTOSIS 1+; PLATELET ESTIMATE ADEQUATE; POIKILOCYTOSIS 1+
[2018-05-10 05:45] LABS: CALCIUM 8.3 mg/dL (8.5-10.1); CREATININE 1.3 mg/dL (0.6-1.3); POTASSIUM 4.1 mmol/L (3.5-5.1)
[2018-05-11 04:00] VITALS: BP 110/43
[2018-05-11 05:23] LABS: ABSOLUTE BASOPHILS 0.1 thou/uL (0.0-0.2); ABSOLUTE EOSINOPHILS 0.1 thou/uL (0.0-0.7); ABSOLUTE LYMPHOCYTES 1.5 thou/uL (0.8-5.3); ABSOLUTE MONOCYTES 0.7 thou/uL (0.0-1.2); ABSOLUTE NEUTROPHILS 9.2 thou/uL (1.6-8.1); BASOPHILS 1.1 %; EOSINOPHILS 0.9 %; HEMATOCRIT 38.2 % (42.0-52.0); HEMOGLOBIN 12.3 gm/dL (14.0-18.0); LYMPHOCYTES 12.7 %; MCH 30.5 pg (26.0-34.0); MCHC 32.2 g/dL (28.0-37.0); MCV 94.8 fL (80.0-100.0); MONOCYTES 6.1 %; MPV 9.3 fl. (7.2-11.1); NUCLEATED RBCS 0 /100WBC; PLATELET COUNT* 270 thou/uL (150-400); POLYS 79.2 %; RBC 4.03 mil/uL (4.50-6.00); RDW-CV 14.4 % (10.5-14.5); WBC 11.6 thou/uL (4.0-11.0)
[2018-05-11 05:30] LABS: ALBUMIN 2.3 g/dL (3.4-5.0); CALCIUM 8.4 mg/dL (8.5-10.1); CREATININE 1.2 mg/dL (0.6-1.3); POTASSIUM 3.8 mmol/L (3.5-5.1); TOTAL BILIRUBIN 0.3 mg/dL (<0.1-1.0); TOTAL PROTEIN 6.4 g/dL (6.4-8.2)
[2018-05-11 08:08] VITALS: BP 139/67
[2018-05-11 10:45] VITALS: BP 139/67
[2018-05-11 12:00] VITALS: BP 125/56
[2018-05-11 20:00] VITALS: BP 131/64
[2018-05-12] VITALS: BP 129/69
[2018-05-12 04:00] VITALS: BP 131/64
[2018-05-12 05:46] LABS: ABSOLUTE BASOPHILS 0.1 thou/uL (0.0-0.2); ABSOLUTE LYMPHOCYTES 1.3 thou/uL (0.8-5.3); ABSOLUTE MONOCYTES 0.6 thou/uL (0.0-1.2); ABSOLUTE NEUTROPHILS 8.5 thou/uL (1.6-8.1); EOSINOPHILS 0.5 %; HEMATOCRIT 39.3 % (42.0-52.0); HEMOGLOBIN 12.5 gm/dL (14.0-18.0); MCH 30.3 pg (26.0-34.0); MCHC 31.8 g/dL (28.0-37.0); MCV 95.5 fL (80.0-100.0); MONOCYTES 5.9 %; MPV 9.4 fl. (7.2-11.1); NUCLEATED RBCS 0 /100WBC; PLATELET COUNT* 286 thou/uL (150-400); POLYS 80.6 %; RBC 4.12 mil/uL (4.50-6.00); RDW-CV 14.3 % (10.5-14.5); WBC 10.6 thou/uL (4.0-11.0)
[2018-05-12 05:57] LABS: ALBUMIN 2.4 g/dL (3.4-5.0); CALCIUM 8.4 mg/dL (8.5-10.1); CREATININE 1.2 mg/dL (0.6-1.3); POTASSIUM 4.3 mmol/L (3.5-5.1); TOTAL BILIRUBIN 0.2 mg/dL (<0.1-1.0); TOTAL PROTEIN 6.4 g/dL (6.4-8.2)
[2018-05-12 07:52] VITALS: BP 146/77
[2018-05-12 08:23] VITALS: BP 146/77
[2018-05-12] MEDS ORDERED: ACCUNEB SO1.25 MG/1 INH (11:58)
[2018-05-12] MEDS ORDERED: ALLOPURINOL 10100 M1 PO (12:01)
[2018-05-12] MEDS ORDERED: MINOCIN50 MG PO (12:03)
[2018-05-12] MEDS ORDERED: PREDNISONE 10 M10 MG PO (12:36)
== END 2018-05-12 16:02 | DRG 177 ==
LOC: M.ERS 20:54 → M.2W 22:44 → M.TBA-ER 22:44 → M.2W 22:52
PROVIDERS: Emergency Medicine; Internal Medicine; ADMIT Internal Medicine
DX: J15.6 Pneumonia due to other Gram-negative bacteria (principal); R65.11 Systemic inflammatory response syndrome (SIRS) of non-infectious origin with acute organ dysfunction; J96.01 Acute respiratory failure with hypoxia; L03.119 Cellulitis of unspecified part of limb; N17.9 Acute kidney failure, unspecified; Z68.43 Body mass index [BMI] 50.0-59.9, adult; I48.91 Unspecified atrial fibrillation; I11.0 Hypertensive heart disease with heart failure; G51.0 Bell's palsy; F17.210 Nicotine dependence, cigarettes, uncomplicated; I50.9 Heart failure, unspecified; E66.01 Morbid (severe) obesity due to excess calories; G47.33 Obstructive sleep apnea (adult) (pediatric); M10.9 Gout, unspecified; W06.XXXA Fall from bed, initial encounter; Z79.01 Long term (current) use of anticoagulants; Z88.8 Allergy status to other drugs, medicaments and biological substances; Z79.2 Long term (current) use of antibiotics; Z79.82 Long term (current) use of aspirin; Z79.899 Other long term (current) drug therapy; Y93.89 Activity, other specified; Y92.098 Other place in other non-institutional residence as the place of occurrence of the external cause; Y99.8 Other external cause status

== ENCOUNTER 2018-08-03 18:31 | Inpatient (IN) | payer OTHER ==
[~2018-08-03] VITALS: Ht 180.3 cm; Wt 160.6 kg
[2018-08-03 18:31] VITALS: BP 151/79
[~2018-08-03 18:31] MED LIST changes: +ACCUNEB SO1.25 MG/1 INH; +ALLOPURINOL 10100 M1 PO; +MINOCIN50 MG PO
[2018-08-03 18:39] LABS: HCO3 24.4 mmol/L (22.0-26.0); PCO2 25.6 mmHg (35.0-45.0); PO2 106.3 mmHg (75.0-100.0); pH 7.597 (7.340-7.450)
[2018-08-03 18:50] LABS: HEMATOCRIT 38.6 % (42.0-52.0); HEMOGLOBIN 12.6 gm/dL (14.0-18.0); MCH 30.2 pg (26.0-34.0); MCHC 32.7 g/dL (28.0-37.0); MCV 92.5 fL (80.0-100.0); MPV 8.8 fl. (7.2-11.1); NUCLEATED RBCS 0 /100WBC; PLATELET COUNT* 392 thou/uL (150-400); RBC 4.18 mil/uL (4.50-6.00); RDW-CV 14.6 % (10.5-14.5)
[2018-08-03 19:00] LABS: APTT 32.9 Seconds (25.0-31.3); CALCIUM 9.7 mg/dL (8.5-10.1); CREATININE 1.8 mg/dL (0.6-1.3); INR 1.3; POTASSIUM 4.1 mmol/L (3.5-5.1); PROTIME 13.7 Seconds (9.20-11.50)
[2018-08-03] MEDS ORDERED: PROBIOTIC1 EAC1 (19:05)
[2018-08-03] MEDS ORDERED: MAGNESIUM PO (19:05)
[2018-08-03] MEDS ORDERED: KEFLEX500 M1 (19:06)
[2018-08-03 19:16] LABS: ALBUMIN 3.1 g/dL (3.4-5.0); MAGNESIUM 1.8 mg/dL (1.8-2.4); TOTAL BILIRUBIN 0.4 mg/dL (<0.1-1.0); TOTAL PROTEIN 7.7 g/dL (6.4-8.2)
[2018-08-03 19:18] LABS: ABSOLUTE EOSINOPHILS 0.5 thou/uL (0.0-0.7); ABSOLUTE LYMPHOCYTES 3.2 thou/uL (0.8-5.3); ABSOLUTE MONOCYTES 0.7 thou/uL (0.0-1.2); ABSOLUTE NEUTROPHILS 7.6 thou/uL (1.6-8.1); ATYPICAL LYMPHS 5 %; PLATELET ESTIMATE ADEQUATE
[2018-08-03 19:24] LABS: URINE BILIRUBIN NEGATIVE (Negative); URINE BLOOD NEGATIVE (Negative); URINE CLARITY CLEAR; URINE COLOR YELLOW; URINE GLUCOSE-RANDOM NEGATIVE (Negative); URINE KETONES NEGATIVE (Negative); URINE LEUKOCYTES-REFLEX NEGATIVE (Negative); URINE NITRITE-REFLEX NEGATIVE (Negative); URINE PROTEIN NEGATIVE (Negative); URINE SPECIFIC GRAVITY 1.015 (1.005-1.030); URINE UROBILINOGEN 0.2 E.U./dl (0.2-1.0)
[2018-08-03 19:32] LABS: AMP/METHAMP Negative (Negative); BARBITURATES Negative (Negative); BENZODIAZEPINES Negative (Negative); COCAINE Negative (Negative); METHADONE Negative (Negative); OPIATES Negative (Negative); PCP Negative (Negative); THC Negative (Negative)
[2018-08-03 20:08] LABS: NT-PRO BRAIN NAT PEPTIDE 111 pg/mL (<300)
[2018-08-03 20:59] LABS: AMMONIA 10 umol/L (11-32)
[2018-08-03 21:45] VITALS: BP 121/68
[2018-08-03 22:10] VITALS: BP 140/53
[2018-08-04] VITALS: BP 124/52
[2018-08-04 04:00] VITALS: BP 135/69
[2018-08-04 08:00] VITALS: BP 120/65
--- NOTE | 2018-08-04 11:24 | EKG ---
[place] [address] ELECTROCARDIOGRAM REPORT Name: JENNIFER NELSON Room: [address] ADM IN .R.#: [id number] Admission: 08/03/18 Attend Phys: Bethel Horton MD Discharge: Date of : 40 Report #: [id number] THIS REPORT FOR: //name// [facility] ED Test Date: 2018-08-03 Test Time: 18:31:05 Pat Name: JENNIFER NELSON Department: Room: [facility] Gender: M Quilter Fixer: Luis E YOUNG : 1940 Requested By: Samia Armendariz Order Number: [id number] MD: Frederic Hewitt Measurements Intervals [place] Rate: 88 P: [place]: QRS: -15 QRSD: 104 T: 15 QT: 358 QTc: 434 Interpretive Statements Atrial fibrillation Borderline left axis deviation Low voltage, precordial leads Abnormal R-wave progression, late transition artifact noted Compared to ECG 05/07/2018 21:07:31 no change Electronically Signed On 08-04-2018 11:24:05 MIXER P[employer]MENT by Frederic Hewitt [email or web address] <ELECTRONICALLY SIGNED> By: Frederic Hewitt MD, FACC 08/04/18 1124 1831 1831 Frederic Hewitt MD, [facility] /EPI
[2018-08-04 11:46] VITALS: BP 108/54
[2018-08-04 15:47] VITALS: BP 109/62
[2018-08-04 20:00] VITALS: BP 133/62
[2018-08-05 01:05] VITALS: BP 129/67
[2018-08-05 04:18] VITALS: BP 144/73
[2018-08-05 05:25] LABS: HEMATOCRIT 35.3 % (42.0-52.0); HEMOGLOBIN 11.5 gm/dL (14.0-18.0); MCH 30.2 pg (26.0-34.0); MCHC 32.5 g/dL (28.0-37.0); MPV 9.4 fl. (7.2-11.1); RBC 3.8 mil/uL (4.50-6.00); RDW-CV 14.8 % (10.5-14.5); WBC 16.9 thou/uL (4.0-11.0)
[2018-08-05 06:03] LABS: ALBUMIN 2.8 g/dL (3.4-5.0); CALCIUM 8.9 mg/dL (8.5-10.1); CREATININE 1.5 mg/dL (0.6-1.3); MAGNESIUM 2.1 mg/dL (1.8-2.4); POTASSIUM 4.1 mmol/L (3.5-5.1); TOTAL BILIRUBIN 0.4 mg/dL (<0.1-1.0); TOTAL PROTEIN 6.4 g/dL (6.4-8.2)
[2018-08-05 08:02] VITALS: BP 136/77
[2018-08-05 12:28] VITALS: BP 157/81
[2018-08-05 16:22] VITALS: BP 138/74
[2018-08-05 20:00] VITALS: BP 147/82
[2018-08-06 01:11] VITALS: BP 128/53
[2018-08-06 04:48] VITALS: BP 152/78
[2018-08-06 05:30] LABS: HEMATOCRIT 36.2 % (42.0-52.0); HEMOGLOBIN 11.7 gm/dL (14.0-18.0); MCHC 32.3 g/dL (28.0-37.0); MCV 93.1 fL (80.0-100.0); MPV 9.5 fl. (7.2-11.1); RBC 3.89 mil/uL (4.50-6.00); RDW-CV 14.5 % (10.5-14.5); WBC 13.8 thou/uL (4.0-11.0)
[2018-08-06 06:13] LABS: ALBUMIN 2.7 g/dL (3.4-5.0); CALCIUM 8.9 mg/dL (8.5-10.1); CREATININE 1.4 mg/dL (0.6-1.3); MAGNESIUM 2.2 mg/dL (1.8-2.4); POTASSIUM 3.8 mmol/L (3.5-5.1); TOTAL BILIRUBIN 0.2 mg/dL (<0.1-1.0); TOTAL PROTEIN 6.7 g/dL (6.4-8.2)
[2018-08-06 08:00] VITALS: BP 142/81
[2018-08-06 11:51] VITALS: BP 126/70
[2018-08-06 15:37] VITALS: BP 128/70
[2018-08-06 20:00] VITALS: BP 149/72
[2018-08-07 00:03] VITALS: BP 168/67
[2018-08-07 04:21] VITALS: BP 138/69
[2018-08-07 04:58] LABS: HEMATOCRIT 36.5 % (42.0-52.0); HEMOGLOBIN 11.8 gm/dL (14.0-18.0); MCHC 32.2 g/dL (28.0-37.0); MCV 93.1 fL (80.0-100.0); MPV 9.6 fl. (7.2-11.1); RBC 3.92 mil/uL (4.50-6.00); RDW-CV 14.6 % (10.5-14.5); WBC 13.6 thou/uL (4.0-11.0)
[2018-08-07 05:16] LABS: CALCIUM 8.7 mg/dL (8.5-10.1); CREATININE 1.4 mg/dL (0.6-1.3); POTASSIUM 3.7 mmol/L (3.5-5.1)
[2018-08-07 07:45] VITALS: BP 169/90
[2018-08-07 11:51] VITALS: BP 160/93
[2018-08-07] MEDS ORDERED: IPRAT-ALBUT 0.5-3 ML INH (11:57)
[2018-08-07] MEDS ORDERED: ALDACTONE50 MG PO (11:57)
[2018-08-07] MEDS ORDERED: PREDNISONE 10 M10 MG PO (11:57)
[2018-08-07] MEDS ORDERED: DOXYCYCLINE 10100 MG PO (11:57)
== END 2018-08-07 15:00 | disposition home or self-care (01) | DRG 177 ==
LOC: M.ERS 18:31 → M.2W 20:25 → M.TBA-ER 20:25 → M.2W 22:01
PROVIDERS: Internal Medicine; Personal Emergency Response Attendant; ADMIT Internal Medicine
DX: J15.6 Pneumonia due to other Gram-negative bacteria (principal); I50.33 Acute on chronic diastolic (congestive) heart failure; L03.116 Cellulitis of left lower limb; J44.0 Chronic obstructive pulmonary disease with (acute) lower respiratory infection; J44.1 Chronic obstructive pulmonary disease with (acute) exacerbation; L03.115 Cellulitis of right lower limb; R65.10 Systemic inflammatory response syndrome (SIRS) of non-infectious origin without acute organ dysfunction; I11.0 Hypertensive heart disease with heart failure; I48.91 Unspecified atrial fibrillation; G51.0 Bell's palsy; M10.9 Gout, unspecified; Z88.8 Allergy status to other drugs, medicaments and biological substances; Z79.01 Long term (current) use of anticoagulants; Z79.2 Long term (current) use of antibiotics; Z79.82 Long term (current) use of aspirin; Z79.899 Other long term (current) drug therapy; Z87.891 Personal history of nicotine dependence

== ENCOUNTER 2020-04-13 15:48 | Inpatient (IN) | payer OTHER ==
[~2020-04-13] VITALS: Ht 180.3 cm; Wt 159.2 kg
--- NOTE | ~2020-04-13 | EMS ---
[address] [place] [address] EMS Patient Care Report Name: JENNIFER NELSON Room: [address] IN [facility]#: [id number] Admission: 04/13/20 Attend Phys: Bethel Horton MD Discharge: Date of : 40 Report #: [id number] THIS REPORT FOR: //name// Report Transmitted: 04/13/2020 17:11 EMS Care Summary [facility] Incident [id number] @ 04/13/2020 14:45 Incident Location [address] [place] [address] Patient JENNIFER NELSON Male, 79 Years 1940 Patient Address [address] [place] [address] Patient History Congestive Heart Failure (CHF),Gout, Patient Allergies No known allergies, Patient Medications Lasix, Albuterol, Chief Complaint SOB Disposition Transported No Lights/[place] Dispatch Reason Breathing Problem Transported To [facility] Narrative Dispatched for 79y/o male with shortness of breath. Upon arrival pt. was sitting in a chair acting anxious. Pt. lower legs and feet are red and purple in color with open wounds on his calves. Pt. has history of CHF and Gout. Pt. family states that pt. c/o shortness of breath approx. 1 hour ago [place] [address] EMS Patient Care Report Name: JENNIFER NELSON Room: [address] IN [facility].#: [id number] Admission: 04/13/20 Attend Phys: Bethel Horton MD Discharge: Date of : 40 Report #: [id number] him Albuterol nebulizer and MDI. Pt. family also states that pt. is unable to answer questions appropriately. Pt. was able to answer questions correctly with head nods and when asked pt. spoke and stated that he just did not want to talk to us. Pt. also stated that he would not go to a hospital. Further exam revealed diminished breath sounds, that along with wounds on his legs caused pt. to agree to transport by ambulance. O2 was given via NC and pt. stated that he felt less short of breath. Pt. was transported to [facility] ED for emergency services. Initial Vitals @15:20P: 130,R: 24,BP: 160/130,SpO2: 98, @15:35P: 120,R: 24,BP: 160/126,SpO2: 98, @15:05P: 120,R: 24,BP: 210/110,Pain: 0/10,GCS: 15,Temp: 97F,Glucose: 131,SpO2: 91,Revised Trauma: 12,NV Suspected: false Assessments @15:00MENTAL:Other,Person Oriented,Place Oriented,SKIN:Other,HEENT:Head/Face: No Abnormalities,Neck/Airway: No Abnormalities,LUNG SOUNDS:General: No Abnormalities,ABDOMEN:General: No Abnormalities,PELVIS//GI:EXTREMITIES:Right Leg: Edema,Left Leg: Edema,Left Leg: Other,Right Leg: Other,Left Arm: No Abnormalities,Right Arm: No Abnormalities,PULSE:Radial: 2+ Normal,NEURO: Impression Congestive heart failure (CHF) Procedures @15:25Saline Lock 10cc (20 ga) Site: Hand-LeftResponse: UnchangedSucceeded@15:15Oxygen FlowRate: 4 Device: Nasal Cannula (NC) Response: ImprovedSucceeded Timeline 14:41,Call Received 14:45,Dispatched 14:45,En Route 14:56,Initial Responder On Scene 14:56,On Scene 15:00,At Patient 15:05,BP: 210/110 M,PULSE: 120,RR: 24 R,SPO2: 91 Ox,ETCO2: ,B,PAIN: 0,GCS: 15, 15:15,Oxygen FlowRate: 4 Device: Nasal Cannula (NC) Response: ImprovedSucceeded, 15:18,Depart Scene 15:20,BP: 160/130 M,PULSE: 130,RR: 24 R,SPO2: 98 Ox,ETCO2: ,BG: ,PAIN: ,GCS: , 15:25,Saline Lock 10cc 20 ga Site: Hand-Left,Response: UnchangedSucceeded, 15:35,BP: 160/126 M,PULSE: 120,RR: 24 R,SPO2: 98 Ox,ETCO2: ,BG: ,PAIN: ,GCS: , 15:42,At Destination 15:45,[place] [address] EMS Patient Care Report Name: JENNIFER NELSON Room: [address] IN [facility]#: [id number] Admission: 04/13/20 Attend Phys: Bethel Horton MD Discharge: Date of : 40 Report #: [id number] 16:24,Call Closed 16:24,In District Disclaimer v1.1 Copyright 2020 [employer] This EMS Care Summary contains data elements from the applicable legal record (which may be displayed differently). It is designed to provide pertinent information for the following purposes: continuity of care, clinical quality, and state data reporting. The complete legal record is available to ED staff and administrators of the receiving hospital in [employer]s Patient Tracker. All data is provided "as is."
--- NOTE | ~2020-04-13 | EMS ---
[address] [place] [address] EMS Patient Care Report Name: JENNIFER NELSON Room: [address] IN [facility]#: [id number] Admission: 04/13/20 Attend Phys: Bethel Hroton MD Discharge: Date of : 40 Report #: [id number] THIS REPORT FOR: //name// Report Transmitted: 04/14/2020 09:50 EMS Care Summary [facility] [employer] [facility] Incident [id number] @ 04/13/2020 14:45 Incident Location [address] [place] [address] Patient JNENIFER NELSON Male, 79 Years 1940 Patient Address [address] [place] [address] Patient History Congestive Heart Failure (CHF),Gout, Patient Allergies No known allergies, Patient Medications Lasix, Albuterol, Chief Complaint SOB Disposition Transported No Lights/[place] Dispatch Reason Breathing Problem Transported To [facility] Narrative Dispatched for 79y/o male with shortness of breath. Upon arrival pt. was sitting in a chair acting anxious. Pt. lower legs and feet are red and purple in color with open wounds on his calves. Pt. has history of CHF and Gout. Pt. family states that pt. c/o shortness of breath approx. 1 hour ago and they [place] [address] [place] [id number] [place] Patient Care Report Name: JENNIFER NELSON Room: [address] IN ..#: [id number] Admission: 04/13/20 Attend Phys: Bethel Horton MD Discharge: Date of : 40 Report #: [id number] him Albuterol nebulizer and MDI. Pt. family also states that pt. is unable to answer questions appropriately. Pt. was able to answer questions correctly with head nods and when asked pt. spoke and stated that he just did not want to talk to us. Pt. also stated that he would not go to a hospital. Further exam revealed diminished breath sounds, that along with wounds on his legs caused pt. to agree to transport by ambulance. O2 was given via NC and pt. stated that he felt less short of breath. Pt. was transported to [facility] ED for emergency services. Initial Vitals @15:20P: 130,R: 24,BP: 160/130,SpO2: 98, @15:35P: 120,R: 24,BP: 160/126,SpO2: 98, @15:05P: 120,R: 24,BP: 210/110,Pain: 0/10,GCS: 15,Temp: 97F,Glucose: 131,SpO2: 91,Revised Trauma: 12,PR Suspected: false Assessments @15:00MENTAL:Other,Person Oriented,Place Oriented,SKIN:Other,HEENT:Head/Face: No Abnormalities,Neck/Airway: No Abnormalities,LUNG SOUNDS:General: No Abnormalities,ABDOMEN:General: No Abnormalities,PELVIS//GI:EXTREMITIES:Right Leg: Edema,Left Leg: Edema,Left Leg: Other,Right Leg: Other,Left Arm: No Abnormalities,Right Arm: No Abnormalities,PULSE:Radial: 2+ Normal,NEURO: Impression Congestive heart failure (CHF) Procedures @15:25Saline Lock 10cc (20 ga) Site: Hand-LeftResponse: UnchangedSucceeded@15:15Oxygen FlowRate: 4 Device: Nasal Cannula (NC) Response: ImprovedSucceeded Timeline 14:41,Call Received 14:45,Dispatched 14:45,En Route 14:56,Initial Responder On Scene 14:56,On Scene 15:00,At Patient 15:05,BP: 210/110 M,PULSE: 120,RR: 24 R,SPO2: 91 Ox,ETCO2: ,B,PAIN: 0,GCS: 15, 15:15,Oxygen FlowRate: 4 Device: Nasal Cannula (NC) Response: ImprovedSucceeded, 15:18,Depart Scene 15:20,BP: 160/130 M,PULSE: 130,RR: 24 R,SPO2: 98 Ox,ETCO2: ,BG: ,PAIN: ,GCS: , 15:25,Saline Lock 10cc 20 ga Site: Hand-Left,Response: UnchangedSucceeded, 15:35,BP: 160/126 M,PULSE: 120,RR: 24 R,SPO2: 98 Ox,ETCO2: ,BG: ,PAIN: ,GCS: , 15:42,At Destination 15:45,[place] [address] EMS Patient Care Report Name: JENNIFER NELSON Room: [address] IN [facility]#: [id number] Admission: 04/13/20 Attend Phys: Bethel Horton MD Discharge: Date of : 40 Report #: [id number] 16:24,Call Closed 16:24,In District Disclaimer v1.1 Copyright 2020 [employer] This EMS Care Summary contains data elements from the applicable legal record (which may be displayed differently). It is designed to provide pertinent information for the following purposes: continuity of care, clinical quality, and state data reporting. The complete legal record is available to ED staff and administrators of the receiving hospital in [employer]'s Patient Tracker. All data is provided "as is."
[~2020-04-13 15:48] MED LIST changes: +ALDACTONE50 MG PO; +IPRAT-ALBUT 0.5-3 ML INH; +KEFLEX500 M1; +MAGNESIUM PO; +PROBIOTIC1 EAC1
[2020-04-13 15:49] VITALS: BP 114/99
[2020-04-13 16:29] LABS: HEMATOCRIT 49.7 % (42.0-52.0); HEMOGLOBIN 16.5 gm/dL (14.0-18.0); MCH 31.1 pg (26.0-34.0); MCHC 33.3 g/dL (28.0-37.0); MCV 93.4 fL (80.0-100.0); MPV 9.4 fl. (7.2-11.1); NUCLEATED RBCS 0 /100WBC; PLATELET COUNT* 232 thou/uL (150-400); RBC 5.32 mil/uL (4.50-6.00); RDW-CV 14.4 % (10.5-14.5); WBC 17.6 thou/uL (4.0-11.0)
[2020-04-13 16:37] LABS: CALCIUM 8.7 mg/dL (8.5-10.1); CREATININE 1.7 mg/dL (0.6-1.3)
[2020-04-13 16:38] LABS: BE 1.7 mmol/L (-2 to +3); PCO2 41.1 mmHg (35.0-45.0); PO2 84.4 mmHg (75.0-100.0); pH 7.424 (7.340-7.450)
[2020-04-13 16:38] LABS: APTT 24.8 Seconds (25.0-31.3); INR 1.2; PROTIME 12.6 Seconds (9.20-11.50)
[2020-04-13 16:48] LABS: ALBUMIN 3.7 g/dL (3.4-5.0); TOTAL BILIRUBIN 0.6 mg/dL (<0.1-1.0); TOTAL PROTEIN 7.4 g/dL (6.4-8.2)
[2020-04-13 17:12] LABS: URINE BILIRUBIN NEGATIVE (Negative); URINE BLOOD NEGATIVE (Negative); URINE CLARITY CLEAR; URINE COLOR YELLOW; URINE GLUCOSE-RANDOM NEGATIVE (Negative); URINE KETONES NEGATIVE (Negative); URINE LEUKOCYTES-REFLEX NEGATIVE (Negative); URINE NITRITE-REFLEX NEGATIVE (Negative); URINE PROTEIN NEGATIVE (Negative); URINE SPECIFIC GRAVITY 1.015 (1.005-1.030); URINE UROBILINOGEN 0.2 E.U./dl (0.2-1.0)
[2020-04-13 17:42] LABS: ABSOLUTE EOSINOPHILS 0.2 thou/uL (0.0-0.7); ABSOLUTE LYMPHOCYTES 1.4 thou/uL (0.8-5.3); ABSOLUTE MONOCYTES 0.4 thou/uL (0.0-1.2); ABSOLUTE NEUTROPHILS 15.7 thou/uL (1.6-8.1); PLATELET ESTIMATE ADEQUATE
[2020-04-13 19:39] VITALS: BP 141/70
[2020-04-13 21:00] VITALS: BP 133/85
[2020-04-14] VITALS: BP 139/61
[2020-04-14 04:00] VITALS: BP 132/76
--- NOTE | 2020-04-14 04:42 | NUR ---
RECEIVED REPORT FROM MITLON LEE. PT TRANSFERRED TO 213. PT A&OX3. NOT ORIENTED TO TIME. VSS. 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 ADMISSION HISTORY & PHYSICAL ASSESSMENT COMPLETED AND CHARTED. ORIENTED TO ROOM & CALL LIGHT. PT ON O2 AT 2L NC. PT INTRSUCTED ON CLEAR LIQUIDS ORDERED. PT WITH BILATERAL LEG CELLULITIS-PHOTOGRAPH TAKEN. PT TURNED TO SIDES. CALL LIGHT WITHIN REACH.
[2020-04-14 09:00] VITALS: BP 125/68
[2020-04-14 12:00] VITALS: BP 158/88
--- NOTE | 2020-04-14 15:53 | NUR ---
Pt asleep, spoke with Pt's dtr in room. Pt resides at home with . Independent. Dtr available to assist as needed. Pt uses a walker for mobility. Pt also has a shower chair and commode. Hx of home o2, up until a year ago. No hx of HH. Hx of skilled at [facility]. Goal is home at [place], they do not want HH. Per dtr, manages Pt's leg wraps, she cleans and changes the bandages. Dtr states that they can manage home IVABX at [place] if needed. Following.
[2020-04-14 16:00] VITALS: BP 132/72
--- NOTE | 2020-04-14 19:05 | NUR ---
I ASSUMED CARE OF THE PATIENT AT 0700. HE IS ALERT AND ORIENTED X4, BUT QUIET. DOESN'T SPEAK UNLESS SPOKEN TO. DAUGHTER IS AT THE BEDSIDE ALL DAY. BED IS IN THE LOW LOCKED POSITION AND CALL LIGHT IS IN REACH. HOURLY ROUNDING IS COMPLETED AND PATIENT NEED ARE MET. PAIN IS DENIED. LEG WOUNDS ARE CLEANED, OPTIFOAM AG, KERLEX AND VELVET WRAPS ARE APPLIED. PATIENT SAT UP IN THE CHAIR A GOOD PART OF THE DAY. LABS ARE MONITORED. BLOOD GLUCOSE IS MONITORED WELL CARDIAC ACTIVITY. WILL CONTINUE TO MONITOR.
[2020-04-14 20:00] VITALS: BP 142/95
[2020-04-15] VITALS: BP 141/63
[2020-04-15 04:00] VITALS: BP 160/82
[2020-04-15 06:17] LABS: HEMATOCRIT 42.2 % (42.0-52.0); MCH 31.2 pg (26.0-34.0); MCHC 33.1 g/dL (28.0-37.0); MCV 94.2 fL (80.0-100.0); MPV 10.3 fl. (7.2-11.1); RBC 4.47 mil/uL (4.50-6.00); RDW-CV 14.8 % (10.5-14.5); WBC 19.5 thou/uL (4.0-11.0)
[2020-04-15 06:18] LABS: HEMOGLOBIN 13.9 gm/dL (14.0-18.0)
[2020-04-15 06:28] LABS: CALCIUM 8.7 mg/dL (8.5-10.1); CREATININE 1.4 mg/dL (0.6-1.3); MAGNESIUM 2.1 mg/dL (1.8-2.4); POTASSIUM 4.1 mmol/L (3.5-5.1)
[2020-04-15 07:55] VITALS: BP 134/71
--- NOTE | 2020-04-15 08:54 | NUR ---
RECIEVED REPORT AROUND 07. ASSUMED CARE. PT IN CHAIR. STATED "I DIDN'T SLEEP WELL LAST NIGHT." NO REPORTS OF PAIN. ATTACHED TO THE HEART MONITOR. IV IN LEFT HAND. DETACHED IV ANTIBIOTICS THIS MORNING. IV FLUSHED. VS AND ASSESSMENT CHARTED. CALL LIGHT WITH IN REACH. WILL CONTINUE TO MONITOR.
[2020-04-15 12:03] VITALS: BP 147/84
--- NOTE | 2020-04-15 14:34 | EKG ---
[place] [address] ELECTROCARDIOGRAM REPORT Name: LESLIEJENNIFER Room: [address] ADM IN .R.#: [id number] Admission: 04/13/20 Attend Phys: Bethel Horton, Discharge: Date of : 40 Date of Service: 04/13/20 1555 Report #: [id number] THIS REPORT FOR: //name// [facility] ED Test Date: 2020-04-13 Test Time: 15:55:42 Pat Name: JENNIFER NELSON Department: Room: [facility] Gender: M Processing Operator: SHON : 1940 Requested By: Lino Olmos Order Number: [id number] MD: Angelo Saravia Measurements Intervals [place] Rate: 133 P: 210 CA: 153 QRS: -46 QRSD: 102 T: -44 QT: 286 QTc: 426 Interpretive Statements Atrial fibtrillation with rapid response Inferior infarct, age indeterminate Consider anterior infarct Compared to ECG 08/03/2018 18:31:05 Myocardial infarct finding now present Atrial fibrillation persists Electronically Signed On 04-15-2020 14:34:07 CDT by Angelo Saravia [email or web address] <ELECTRONICALLY SIGNED> By: Angelo Saravia MD, FACC 04/15/20 1434 1555 1555 Angelo Saravia MD, FAC /EPI
--- NOTE | 2020-04-15 14:37 | EKG ---
[place] [address] ELECTROCARDIOGRAM REPORT Name: MAURY NELSONVIN Riky Room: [address] ADM IN M.R.#: [id number] Admission: 04/13/20 Attend Phys: Bethel Horton, Discharge: Date of : 40 Date of Service: 04/13/20 2333 Report #: [id number] THIS REPORT FOR: //name// [facility] Test Date: 2020-04-13 Test Time: 23:33:34 Pat Name: JENNIFER NELSON Department: Room: [address] Gender: M Dot Compliance Coordinator: rparazo : 1940 Requested By: Bethel Horton Order Number: [id number] Elias MD: Angelo Saravia Measurements Intervals [place] Rate: 108 P: [place]: QRS: -41 QRSD: 102 T: -9 QT: 352 QTc: 472 Interpretive Statements Atrial fibrillation Abnormal R-wave progression, late transition Inferior infarct, old Baseline wander in lead(s) V2 Compared to ECG 04/13/2020 15:55:42 Myocardial infarct finding still present Electronically Signed On 04-15-2020 14:37:25 CDT by Angelo Saravia [email or web address] <ELECTRONICALLY SIGNED> By: Angelo Saravia MD, FAC 04/15/20 1437 2333 2333 Angelo Saravia MD, FAC /EPI
--- NOTE | 2020-04-15 15:37 | NUR ---
Anticipate dc in 1-2 days. Ex ox to be completed at dc to determine if Pt needs home o2 set up
[2020-04-15 15:54] VITALS: BP 150/98
--- NOTE | 2020-04-15 18:43 | NUR ---
CONTINUED IV ANTIBIOTICS. RECIEVED IV LASIX. GOOD URINE OUTPUT. IV TO BE CONTINOUSLY FLUSHED TO PREVENT CLOTTING OFF. PT ON 2L NC DUE TO SAT BEING IN 80'S. PT DAUGHTER VISITED THIS SHIFT. CALL LIGHT WITHIN REACH. WILL CONTINUE TO MONITOR.
[2020-04-15 20:00] VITALS: BP 160/90
[2020-04-16 04:00] VITALS: BP 144/87
--- NOTE | 2020-04-16 05:34 | NUR ---
ASSESSMENTS COMPLETED AT BEDSIDE, PLEASE REFER TO CHARTING FOR DETAILS. MEDCIATIONS ADMINISTERED PER OCT. PT EXPERENCED TROUBLE BREATHING, RECIEVED ORDERS FROM PHYSICIAN FOR CHEST XRAY AND LASIX. PT BREATHING IMPROVED. PT ALSO HAVING IMPULSIVE EPISODES, TRYING TO GET OUT OF BED BY HIMSELF, BED ALARM IS ON AND CALL LIGHT WITHIN REACH.
[2020-04-16 08:00] VITALS: BP 134/66
--- NOTE | 2020-04-16 10:20 | NUR ---
RECIEVED REPORT AROUND 07. ASSUMED CARE. VS AND ASSESSMENT CHARTED. NO REPORTS OF PAIN. PT UP IN CHAIR. SLEEPY THIS MORNING. IV ANTIBIOTICS CONTINUED. IV INTACT. LEFT FOREARM AND FLUSHED. HEART MONITOR ATTACHED TO PT. LEGS WRAPPED. CALL LIGHT WITHIN REACH. WILL CONTINUE TO MONITOR.
--- NOTE | 2020-04-16 11:57 | NUR ---
Pt continues on IVABX and Lasix. Pt to do overnight ox tonight. Pt will also need an exercise ox at dc, to determine if he needs home o2 with activity. Goal is home, anticipate dc within the next 1-2 days.
[2020-04-16 12:00] VITALS: BP 127/64
[2020-04-16 16:19] VITALS: BP 95/64
--- NOTE | 2020-04-16 17:39 | NUR ---
NO NEW CHANGES FROM MORNING ASSESSMENT. PT WENT FROM CHAIR TO BED. NO REPORTS OF PAIN. HOURLY ROUNDING PERFORMED. MEDICATION PER OCT. DAUGHTER AT BEDSIDE. CALL LIGHT WITHIN REACH. WILL CONTINUE TO MONITOR.
[2020-04-16 20:00] VITALS: BP 156/59
--- NOTE | 2020-04-17 05:18 | NUR ---
ASSESSMENT COMPLETED AT BEDSIDE, PLEASE REFER TO CHARTING FOR DETAILS. MEDICATIONS ADMINISTERED PER MAR. PT SHOWS MUCH IMPROVEMENT WITH BREATHING THEN HE HAD THE PRIOR HS SHIFT. PT DOES REPORT TROUBLE SLEEPING, PRN MEDICATION NOT EFFECTIVE, PT STATED THAT HE JUST WILL SLEEP BETTER WHEN HE GETS HOME. ENCOURAGED PT TO KEEP LEGS ELEVATED TO REDUCE SWELLING TO BLE. PT HAD SLEEP STUDY COMPLETED THIS SHIFT, TOLERATED WELL. PT CURRENTLY UP IN RECLINER, CHAIR ALARM IS ON AND CALL LIGHT WITHIN REACH.
[2020-04-17 08:00] VITALS: BP 156/60
[2020-04-17 08:38] LABS: CALCIUM 8.8 mg/dL (8.5-10.1); CREATININE 1.4 mg/dL (0.6-1.3); MAGNESIUM 1.8 mg/dL (1.8-2.4); POTASSIUM 3.4 mmol/L (3.5-5.1)
[2020-04-17] MEDS ORDERED: MINOCYCLINE HC100 M2 PO (08:54)
--- NOTE | 2020-04-17 12:21 | NUR ---
WOUND NURSE: PATIENT SEEN FOR WOUND ASSESSMENT TO BLE: RLE VENOUS ULCER MEASURES 5.0 X 1.5 X 0.1 CM. LEFT LE: MEASURES 2.3 X 2.1 X 0.1 CM BOTH WITH RED, NONGRANULATING TISSUE IN THE WOUND BED, SEROUS DRAINAGE IN MODERATE AMOUNT. 3 + EDEMA IN BLE. REDNESS, AND NO WARMTH ON LLE. CLEANSED WITH SOAP AND WATER, RINSED, PATTED DRY. APPLIED LOTION TOES TO KNEE BLE. APPLIED OPTIFOAM GENTLE AG TO EACH WOUND. WRAPPED WITH KERLEX UNDER VELVET WRAPS TOES TO KNEE BLE. DAUGHTER IN ROOM AND CARES FOR PATIENT. REVIEWED HOME CARE OF PATIENT PERTAINING TO WOUNDS AND SHE HAS A VERY GOOD UNDERSTANDING. SUGGESTED OUTPATIENT WOUND CARE OR LYMPHEDEMA CLINIC BUT DAUGHTER AND PATIENT NOT INTERESTED.
[2020-04-17 12:22] VITALS: BP 143/71
[2020-04-17 12:35] VITALS: BP 143/71
--- NOTE | 2020-04-17 13:01 | NUR ---
RECIEVED REPORT AROUND 0715. ASSUMED CARE. VS AND ASSESSMENT CHARTED. HEART MONITOR ATTACHED TO PT. IV INTACT. POSSIBLE DISCHARGE TODAY. NO REPORTS OF PAIN. PT UP IN CHAIR DURING VITALS. CALL LIGHT WITHIN REACH. WILL CONTINUE TO MONITOR.
[2020-04-17 14:10] VITALS: BP 143/71
--- NOTE | 2020-04-17 14:38 | NUR ---
RECIEVED DISCHARGE ORDERS. DISCHARGE PACKET GIVEN TO PT AND DAUGHTER. EDUCATION ON WOUNDS GIVEN BY WOUND NURSE. PT AND DAUGHTER COMMUNICATED UNDERSTANDING. HAD NO QUESTIONS. IV TAKEN OUT. HEART MONITOR OFF. ALL BELONGINGS LEFT WITH PT AND DAUGHTER VIA WHEELCHAIR WITH NURSING STAFF AT 1435.
--- NOTE | 2020-04-17 16:28 | NUR ---
cm [facility]. [employer] delivered o2 tank to [facility]. cm delivered tank to pt's room. pt sitting upright in recliner w/o2 applied. pt dtr also present in room when cm instructed them both to contact [employer] once at home so [employer] could bring remaining/add'l equip. pt's dtr expressed understanding stating, "we've been through this before."
[2020-04-21 09:29] LABS: GLYCOHEMOGLOBIN (HGB A1C) 6.4
== END 2020-04-17 14:35 | disposition home or self-care (01) | DRG 871 ==
LOC: M.ERS 15:48 → M.TBA-ER 16:41 → M.2W 16:41
PROVIDERS: Family Medicine; ADMIT Internal Medicine; ATTEND Internal Medicine
DX: A41.9 Sepsis, unspecified organism (principal); G92 Toxic encephalopathy; L03.116 Cellulitis of left lower limb; I50.32 Chronic diastolic (congestive) heart failure; I48.20 Chronic atrial fibrillation, unspecified; D68.69 Other thrombophilia; I13.0 Hypertensive heart and chronic kidney disease with heart failure and stage 1 through stage 4 chronic kidney disease, or unspecified chronic kidney disease; J96.11 Chronic respiratory failure with hypoxia; Z20.828 Contact with and (suspected) exposure to other viral communicable diseases; M10.9 Gout, unspecified; I87.8 Other specified disorders of veins; G47.33 Obstructive sleep apnea (adult) (pediatric); Z88.8 Allergy status to other drugs, medicaments and biological substances; Z87.891 Personal history of nicotine dependence; Z79.899 Other long term (current) drug therapy; Z79.82 Long term (current) use of aspirin; N18.3 Chronic kidney disease, stage 3 (moderate)

== ENCOUNTER 2020-05-18 19:44 | Inpatient (IN) | payer OTHER ==
[~2020-05-18] VITALS: Ht 182.9 cm; Wt 179.2 kg
--- NOTE | ~2020-05-18 | EMS ---
[address] [place] [address] EMS Patient Care Report Name: JENNIFER NELSON Room: [address] IN [facility].#: [id number] Admission: 05/18/20 Attend Phys: Carl Angel, Discharge: Date of : 40 Report #: [id number] THIS REPORT FOR: //name// Report Transmitted: 05/20/2020 19:20 EMS Care Summary [place] [facility] [employer] [facility] Incident [id number] @ 05/18/2020 18:23 Incident Location [address] [place] [address] Patient JENNIFER NELSON Male, 79 Years 1940 Patient Address [address] [place] [address] Patient History Congestive Heart Failure (CHF), Patient Allergies No known allergies, Chief Complaint Shortness of Breath Disposition Transported No Lights/[address] Dispatch Reason Breathing Problem Transported To [facility] Narrative [facility] was called to the scene for a 79 year old male who is sick in and out of talking with a history of CHF. Upon arrival Ems found the patient sitting in a recliner in the living room airway is patent as he was coughing patient is visibly in respiratory distress. Patient is on at home oxygen, skin is warm pink and dry patient is only able to [address] [place] [address] EMS Patient Care Report Name: JENNIFER NELSON Room: [address] IN [facility]#: [id number] Admission: 05/18/20 Attend Phys: Carl Angel, Discharge: Date of : 40 Report #: [id number] use one or two worded sentences. Physical assessment some skin tears are noted on both lower extremities as well as discoloration noted the left lower leg is hot to the touch, EMS impression is infection. Patient is a very large man which made obtaining vital signs difficult blood pressure is obtained on the right forearm. BGA is obtained on scene at 135. Patient is confused but obeys commands. Patient is moved by EMS from the recliner and moved to the stair chair and then moved to the stretcher and loaded into the ambulance where a 12 ECG is obtained and vital signs obtained, Patients at home Oxygen level is 4 LPM however saturation levels remained in the high 80's so EMS applied Oxygen at 6LPM which brought the patients saturation up to the mid to high 90's. A non emergent transport to [facility]. En route to [facility] Vital signs are monitored and the patients condition began to improve and began to form full sentences and was confused as to why he was in an ambulance and does not recall why he was there. Radio report is given ad no questions or orders are received. Upon arrival to [facility] verbal report is given to Neida Rossi Rn and ER staff, Med 1 is released from the hospital and returns to [facility] in service. Initial Vitals @19:19P: 86,SpO2: 95, @19:07 @19:34P: 118,SpO2: 98, @19:33P: 287,SpO2: 97, @19:04P: 76,SpO2: 97, @19:04P: 112,SpO2: 92, @19:20P: 77,BP: 195/132,SpO2: 96, @19:33 @19:29P: 58,SpO2: 96, @19:12P: 68, @19:08P: 148,SpO2: 93, @19:14P: 34,SpO2: 93, @19:04P: 169,SpO2: 91, @19:09P: 121, @19:35P: 120,R: 15,BP: 172/102,GCS: 13,SpO2: 97,Revised Trauma: 12, @19:24P: 114,R: 15,BP: 194/108,Pain: 0/10,GCS: 13,SpO2: 96,Revised Trauma: 12, @19:24P: 57,SpO2: 97, @19:10P: 110, Assessments @19:24MENTAL:Confused,Event Oriented,Place Oriented,Time Oriented,SKIN:HEENT:Head/Face: No Abnormalities,Eyes: No Abnormalities,Neck/Airway: No Abnormalities,LUNG SOUNDS:General: No Abnormalities,Left Upper: No Abnormalities,Right Upper: No Abnormalities,[place] [address] EMS Patient Care Report Name: JENNIFER NELSON Room: [address] IN [facility]#: [id number] Admission: 05/18/20 Attend Phys: Carl Angel, Discharge: Date of : 40 Report #: [id number] Lower: No Abnormalities,Right Lower: No Abnormalities,ABDOMEN:General: No Abnormalities,Left Upper: No Abnormalities,Right Upper: No Abnormalities,Left Lower: No Abnormalities,Right Lower: No Abnormalities,PELVIS//GI:EXTREMITIES:Left Leg: Other,PULSE:NEURO:Slurred Speech, Impression Acute Respiratory Distress (Dyspnea) Procedures @19:3312-Lead ECG@19:0712-Lead ECG Timeline 18:21,Call Received 18:23,Dispatched 18:23,En Route 18:33,On Scene 18:34,At Patient 19:04,BP: / M,PULSE: 112,RR: R,SPO2: 92 Ox,ETCO2: ,BG: ,PAIN: ,GCS: , 19:04,BP: / M,PULSE: 169,RR: R,SPO2: 91 Ox,ETCO2: ,BG: ,PAIN: ,GCS: , 19:04,BP: / M,PULSE: 76,RR: R,SPO2: 97 Ox,ETCO2: ,BG: ,PAIN: ,GCS: , 19:07,12-Lead ECG, 19:07,BP: / M,PULSE: ,RR: R,SPO2: Ox,ETCO2: ,BG: ,PAIN: ,GCS: , 19:08,BP: / M,PULSE: 148,RR: R,SPO2: 93 Ox,ETCO2: ,BG: ,PAIN: ,GCS: , 19:09,BP: / M,PULSE: 121,RR: R,SPO2: Ox,ETCO2: ,BG: ,PAIN: ,GCS: , 19:10,BP: / M,PULSE: 110,RR: R,SPO2: Ox,ETCO2: ,BG: ,PAIN: ,GCS: , 19:12,Depart Scene 19:12,BP: / M,PULSE: 68,RR: R,SPO2: Ox,ETCO2: ,BG: ,PAIN: ,GCS: , 19:14,BP: / M,PULSE: 34,RR: R,SPO2: 93 Ox,ETCO2: ,BG: ,PAIN: ,GCS: , 19:19,BP: / M,PULSE: 86,RR: R,SPO2: 95 Ox,ETCO2: ,BG: ,PAIN: ,GCS: , 19:20,BP: 195/132 M,PULSE: 77,RR: R,SPO2: 96 Ox,ETCO2: ,BG: ,PAIN: ,GCS: , 19:24,BP: / M,PULSE: 57,RR: R,SPO2: 97 Ox,ETCO2: ,BG: ,PAIN: ,GCS: , 19:24,BP: 194/108 M,PULSE: 114,RR: 15 R,SPO2: 96 Ox,ETCO2: ,BG: ,PAIN: 0,GCS: 13, 19:29,BP: / M,PULSE: 58,RR: R,SPO2: 96 Ox,ETCO2: ,BG: ,PAIN: ,GCS: , 19:33,12-Lead ECG, 19:33,BP: / M,PULSE: ,RR: R,SPO2: Ox,ETCO2: ,BG: ,PAIN: ,GCS: , 19:33,BP: / M,PULSE: 287,RR: R,SPO2: 97 Ox,ETCO2: ,BG: ,PAIN: ,GCS: , 19:34,BP: / M,PULSE: 118,RR: R,SPO2: 98 Ox,ETCO2: ,BG: ,PAIN: ,GCS: , 19:35,BP: 172/102 M,PULSE: 120,RR: 15 R,SPO2: 97 Ox,ETCO2: ,BG: ,PAIN: ,GCS: 13, 19:37,At Destination 20:15,Call Closed 20:15,[place] [address] EMS Patient Care Report Name: JENNIFER NELSON Room: [address] IN M.R.#: [id number] Admission: 09/20/20 Attend Phys: Carl Angel, Discharge: Date of : 40 Report #: [id number] v1.1 Copyright 2020 [employer] This EMS Care Summary contains data elements from the applicable legal record (which may be displayed differently). It is designed to provide pertinent information for the following purposes: continuity of care, clinical quality, and state data reporting. The complete legal record is available to ED staff and administrators of the receiving hospital in [facility]'s Patient Tracker. All data is provided "as is."
[~2020-05-18 19:44] MED LIST changes: +MINOCYCLINE HC100 M2 PO
[2020-05-18 20:29] LABS: HEMATOCRIT 45.7 % (42.0-52.0); HEMOGLOBIN 15.2 gm/dL (14.0-18.0); MCH 31.4 pg (26.0-34.0); MCHC 33.3 g/dL (28.0-37.0); MCV 94.2 fL (80.0-100.0); MPV 9.8 fl. (7.2-11.1); NUCLEATED RBCS 0 /100WBC; PLATELET COUNT* 198 thou/uL (150-400); RBC 4.85 mil/uL (4.50-6.00); RDW-CV 15.4 % (10.5-14.5); WBC 19.4 thou/uL (4.0-11.0)
[2020-05-18 20:38] LABS: PCO2 43.4 mmHg (35.0-45.0); PO2 115.5 mmHg (75.0-100.0); pH 7.425 (7.340-7.450)
[2020-05-18 20:39] LABS: INR 1.2
[2020-05-18 20:51] LABS: CREATININE 1.6 mg/dL (0.6-1.3); POTASSIUM 4.4 mmol/L (3.5-5.1)
[2020-05-18 20:57] LABS: ABSOLUTE EOSINOPHILS 0.2 thou/uL (0.0-0.7); ABSOLUTE LYMPHOCYTES 2.1 thou/uL (0.8-5.3); ABSOLUTE MONOCYTES 0.6 thou/uL (0.0-1.2); ABSOLUTE NEUTROPHILS 16.5 thou/uL (1.6-8.1); ANISOCYTOSIS 1+; PLATELET ESTIMATE ADEQUATE
[2020-05-18 21:02] LABS: ALBUMIN 3.6 g/dL (3.4-5.0); MAGNESIUM 1.6 mg/dL (1.8-2.4); TOTAL BILIRUBIN 0.4 mg/dL (<0.1-1.0); TOTAL PROTEIN 7.5 g/dL (6.4-8.2)
[2020-05-18 22:10] LABS: URINE BILIRUBIN NEGATIVE (Negative); URINE BLOOD NEGATIVE (Negative); URINE CLARITY CLEAR; URINE COLOR YELLOW; URINE GLUCOSE-RANDOM NEGATIVE (Negative); URINE KETONES NEGATIVE (Negative); URINE LEUKOCYTES-REFLEX NEGATIVE (Negative); URINE NITRITE-REFLEX NEGATIVE (Negative); URINE PROTEIN NEGATIVE (Negative); URINE UROBILINOGEN 0.2 E.U./dl (0.2-1.0)
[2020-05-19] VITALS (49 sets, daily range): BP systolic 99–171; BP diastolic 45–134
--- NOTE | 2020-05-19 01:38 | NUR ---
PT ADMITTED TO ICU ROOM 7 AT 0040. PT ON 2 LITERS PER NASAL CANULA WITH 02 SAT 96%. PT RECIEVED 2 LITERS SALINE BOLUS IN ED. PT TRANSFERED FROM ER CART TO BED WITH SLIDING DEVICE. PT ALERT AND ORIENTED X 4. PT ORIENTED TO ROOM, CALL LIGHT, BED CONTROLS. IV FLUIDS INFUSING VIA CENTRAL LINE. CALL LIGHT IN REACH, WILL MONITOR CLOSELY
--- NOTE | 2020-05-19 02:03 | NUR ---
PT YELLING OUT FOR HELP CONTINUOUSLY. PAGED DR CALDERÓN AND RECIEVED ORDERS.
--- NOTE | 2020-05-19 02:34 | NUR ---
PT PULLING OFF MONITOR LEADS, DISROBING AND ATTEMPTING TO GET OUT OF BED. PT NON COMPLIANT WITH INSTRUCTIONS AND EXPLANATIONS OF EQUIPMENT AND SAFETY. PT GIVEN 0.5 MG ATIVAN IV. SIDE RAILS UP, BED ALARM ON, FREQUENT VISUAL CHECKS DONE. HIGH FALL PRECAUTIONS IN PLACE.
--- NOTE | 2020-05-19 06:28 | NUR ---
PT CONTINUES TO PULL OFF MONITOR LEADS. PT EDUCATED REGARDING NEED TO KEEP MONITORING EQUIPMENT ON.
--- NOTE | 2020-05-19 06:52 | NUR ---
PT ATTEMPTING TO EXIT BED. PT PULLED UP, REPOSITIONED. CENTRAL LINE DRESSING REMOVED BY PATIENT, NEW CENTRAL LINE DRESSING APPLIED.
--- NOTE | 2020-05-19 07:30 | NUR ---
ASSUMED CARE OF PATIENT. GOALS: IMPROVED LACTIC ACID AND TACHYPNEIC.
[2020-05-19 09:02] LABS: ABSOLUTE BASOPHILS 0.2 thou/uL (0.0-0.2); ABSOLUTE EOSINOPHILS 0.1 thou/uL (0.0-0.7); ABSOLUTE LYMPHOCYTES 1.4 thou/uL (0.8-5.3); ABSOLUTE MONOCYTES 0.9 thou/uL (0.0-1.2); ABSOLUTE NEUTROPHILS 17.3 thou/uL (1.6-8.1); BASOPHILS 1.2 %; EOSINOPHILS 0.5 %; HEMATOCRIT 40.3 % (42.0-52.0); HEMOGLOBIN 13.5 gm/dL (14.0-18.0); LYMPHOCYTES 7.2 %; MCH 31.1 pg (26.0-34.0); MCHC 33.4 g/dL (28.0-37.0); MCV 92.9 fL (80.0-100.0); MONOCYTES 4.5 %; MPV 9.5 fl. (7.2-11.1); NUCLEATED RBCS 0 /100WBC; PLATELET COUNT* 166 thou/uL (150-400); POLYS 86.6 %; RBC 4.34 mil/uL (4.50-6.00); RDW-CV 14.8 % (10.5-14.5)
[2020-05-19 09:30] LABS: CALCIUM 8.4 mg/dL (8.5-10.1); CREATININE 1.5 mg/dL (0.6-1.3); POTASSIUM 4.2 mmol/L (3.5-5.1)
[2020-05-19 09:31] LABS: ALBUMIN 2.9 g/dL (3.4-5.0); MAGNESIUM 1.5 mg/dL (1.8-2.4); PHOSPHORUS* 2.6 mg/dL (2.5-4.9); TOTAL BILIRUBIN 0.9 mg/dL (<0.1-1.0)
[2020-05-19 10:40] LABS: APTT 28.2 Seconds (25.0-31.3); INR 1.2; PROTIME 12.8 Seconds (9.20-11.50)
--- NOTE | 2020-05-19 14:23 | NUR ---
WOUND CARE NURSE: CONSULTED FOR EVALUATION OF BILATER LOWER LEGS. LEFT LE+ EDEMA FROM KNEE TO TOES WITH RED COLOR NOTED. LEG WARM TO TOUCH. CAPILLARY REFILL <3 SEC. PALPABLE PULSES. NO OPEN AREAS NOTED AND THIS TIME. LEG MEASURES CALF 48CM, ANKLE 31CM, AND FOOT 31CM. RIGHT LEG: NO EDAMA NOTED, CAPILARRY REFILL <3SEC, PALPABLE PULSES, OPEN AREA NOTED TO LATERAL ASPECT MEASURING 2 X 3.5 X 0.1, OPEN AREA RED NONGRANULATING TISSUE AND IS SUPERFICIAL. NO DRAINAGE NOTED. LOWER LEG MEASURES CALF 46CM, ANKLE 27CM, AND FOOT 28CM. PICTURE OF OPEN AREA OBTAINED. WOUND CARE COMPLETED. AREA CLEANSED WITH SOAP AND WATER RINSED AND PATED DRY, XEROFORM GAUZE APPLIED AND COVERED WITH BOARDER FOAM CHANGE EVERY 3 DAYS AND PRN. TOLERATED EVALUATION AND DRESSNG WELL. PT INSTRUCTED TO KEEP LOWER LEGS ELEVATED. EDUCATION NEEDS REINFORCEMENT.
--- NOTE | 2020-05-19 14:29 | 2DMMODE ---
[place] [address] 2 D/M-MODE ECHOCARDIOGRAM Name: JENNIFER NELSON Room: [address] IN [facility]#: [id number] Admission: 05/18/20 Attend Phys: Carl Kang Discharge: Date of : 40 Date of Service: 05/19/20 1428 Report #: [id number] THIS REPORT FOR: cc: Todd Holden Bradley L. DO Holkins,Angelo Godfrey MD [facility] ~ APPROVED REPORT Study performed: 05/19/2020 10:06:01 EXAM: Comprehensive 2D, Doppler, and color-flow Echocardiogram Patient Location: In-Patient Room #: 007 Status: routine BSA: 2.71 HR: 95 bpm BP: 127/60 mmHg Rhythm: Atrial Fibrillation Other Information Study Quality: Technically Difficult Technically limited study due to body habitus, uncooperative patient. Indications Dyspnea 2D Dimensions Ascending Ao: 38.07 (22-36mm) Aortic Root: 40.91 mm Tricuspid Valve RAP Estimate: 5.00 mmHg TR Peak Gr.: 31.88 mmHg RVSP: 36.00 mmHg PA Pressure: 36.00 mmHg Left Ventricle The left ventricle is normal size. There is normal LV segmental wall motion. There is normal left ventricular wall thickness. The left ventricular systolic function is normal. The left ventricular ejection fraction is within the normal range. LVEF is 55-60%. This study is not technically sufficient to allow evaluation of the LV diastolic function due to atrial fibrillation. [address] [address] 2 D/M-MODE ECHOCARDIOGRAM Name: LESLIEJENNIFER Room: [address] IN [facility]#: [id number] Admission: 05/18/20 Attend Phys: Carl Kang Discharge: Date of : 40 Date of Service: 05/19/20 1428 Report #: [id number] Right Ventricle The right ventricle is normal size. The right ventricular systolic function is normal. Atria The left atrium size is normal. The right atrium size is normal. Aortic Valve The aortic valve is normal in structure. No aortic regurgitation is present. Mitral Valve The mitral valve is normal in structure. There is no mitral valve regurgitation noted. Tricuspid Valve The tricuspid valve is normal in structure. Trace tricuspid regurgitation. Mild pulmonary hypertension. Pulmonic Valve Pulmonic valve is not well visualized. Great Vessels The aortic root is normal in size. IVC is normal in size and collapses >50% with inspiration. Pericardium There is no pericardial effusion. <Conclusion> The left ventricle is normal size. There is normal left ventricular wall thickness. The left ventricular systolic function is normal. The left ventricular ejection fraction is within the normal range. LVEF is 55-60%. This study is not technically sufficient to allow evaluation of the LV diastolic function due to atrial fibrillation. The right ventricle is normal size. The left atrium size is normal. The aortic valve is normal in structure. The mitral valve is normal in structure. The tricuspid valve is normal in structure. Trace tricuspid regurgitation. [place] [address] 2 D/M-MODE ECHOCARDIOGRAM Name: LESLIEJENNIFER Room: [address] IN [facility]#: [id number] Admission: 05/18/20 Attend Phys: Carl Kang Discharge: Date of : 40 Date of Service: 05/19/201427 Report #: [id number] IVC is normal in size and collapses >50% with inspiration. There is no pericardial effusion. There is normal LV segmental wall motion. <ELECTRONICALLY SIGNED> By: Angelo Saravia MD, FACC 05/19/201427 27 27 Angelo Saravia MD, FACC /INF
--- NOTE | 2020-05-19 14:58 | EKG ---
[place] [address] ELECTROCARDIOGRAM REPORT Name: LESLIEJENNIFER Lan Room: [address] IN [facility].#: [id number] Admission: 05/18/20 Attend Phys: Carl Kang Discharge: Date of : 40 Date of Service: 05/18/201948 Report #: [id number] THIS REPORT FOR: //name// [facility] ED Test Date: 2020-05-18 Test Time: 19:49:06 Pat Name: JENNIFER NELSON Department: Room: [facility] Gender: M Timber Killer: [place] : 1940 Requested By: Samia Armendariz Order Number: [id number] MD: nAgelo Saravia Measurements Intervals [place] Rate: 135 P: GA: QRS: -14 QRSD: 93 T: 28 QT: 304 QTc: 456 Interpretive Statements Atrial fibrillation with a rapid ventricular response Low voltage, precordial leads Abnormal R-wave progression, late transition Baseline wander in lead(s) II,III,aVL,aVF Compared to ECG 04/13/2020 23:33:34 Low QRS voltage now present Myocardial infarct finding no longer present Electronically Signed On 05-19-2020 14:58:18 CDT by Angelo Saravia [email or web address] <ELECTRONICALLY SIGNED> By: Angelo Saravia MD, [facility] 05/19/20 1458 48 48 Angelo Saravia MD, [facility] /EPI
--- NOTE | 2020-05-19 15:55 | NUR ---
ICU rounds: Pt septic, may need pressors. Pt known to this CM from previous hospital stay. Spoke with dtr via phone. Pt resides at home with . assists as needed, as does dtr. Pt uses a walker for mobility. Pt has home o2. No hx of HH. Hx of Apurva Blackman skilled. Following for dc needs.
--- NOTE | 2020-05-19 20:35 | NUR ---
INITAL ASSESMENT COMPLETED AT 191. PT ASSISTED UP TO BEDSIDE COMMODE WITH ASSIST OF 2. PT HAD INGRID BROWN FORMED BOWEL MOVEMENT. PT ASSISTED BACK TO BED AND REPOSITIONED. CALL LIGHT IN PLACE, PT DEMONSTRATES PROPER USE.
[2020-05-20] VITALS (22 sets, daily range): BP systolic 105–169; BP diastolic 45–103
[2020-05-20 05:19] LABS: ABSOLUTE LYMPHOCYTES 0.6 thou/uL (0.8-5.3); ABSOLUTE MONOCYTES 0.4 thou/uL (0.0-1.2); ABSOLUTE NEUTROPHILS 15.2 thou/uL (1.6-8.1); BASOPHILS 0.1 %; HEMATOCRIT 36.7 % (42.0-52.0); HEMOGLOBIN 12.3 gm/dL (14.0-18.0); LYMPHOCYTES 3.7 %; MCH 31.3 pg (26.0-34.0); MCHC 33.5 g/dL (28.0-37.0); MCV 93.5 fL (80.0-100.0); MONOCYTES 2.3 %; MPV 9.4 fl. (7.2-11.1); NUCLEATED RBCS 0 /100WBC; PLATELET COUNT* 152 thou/uL (150-400); POLYS 93.9 %; RBC 3.92 mil/uL (4.50-6.00); RDW-CV 14.8 % (10.5-14.5); WBC 16.2 thou/uL (4.0-11.0)
[2020-05-20 05:32] LABS: ALBUMIN 2.5 g/dL (3.4-5.0); CALCIUM 8.2 mg/dL (8.5-10.1); CREATININE 1.5 mg/dL (0.6-1.3); MAGNESIUM 2.3 mg/dL (1.8-2.4); TOTAL BILIRUBIN 0.6 mg/dL (<0.1-1.0); TOTAL PROTEIN 6.1 g/dL (6.4-8.2)
--- NOTE | 2020-05-20 07:31 | NUR ---
ASSESSMENTS CHARTED. PATIENT RESTED IN BED THE DURATION OF THE SHIFT. REFUSED PO MEDCIATION AT THE START OF THE SHIFT. NO SIGNIFICANT EVENTS THIS SHIFT.
--- NOTE | 2020-05-20 14:55 | NUR ---
ICU rounds: IVabx. Bipap with sleep. Pending blood cultures. Wound care consult
--- NOTE | 2020-05-20 16:45 | NUR ---
PT IS A/O X4 BUT CONFUSED AT TIMES.DOWNGRADED TO TELE STATUS.CARB CONTROL DIET RESUMED.RENAL US COMPLETED.PIZANO REMOVED PER PT REQUEST DUE TO C/O PAIN.PT SITTING UP IN RECLINER.CALL LIGHT AND FALL PRECAUTIONS IN PLACE.WILL CONTINUE TO MONITOR FOR DURAITON OF SHIFT.
[2020-05-21] VITALS: BP 152/79
[2020-05-21 04:00] VITALS: BP 138/83
--- NOTE | 2020-05-21 04:29 | NUR ---
PT TRANSFERED TO FLOOR FROM ICU. ASSESSMENT COMPLETED AT BEDSIDE PLEASE REFER TO CHARTING FOR DETIALS. MEDICATIONS ADMINISTERED PER OCT. PIZANO REMOVED PRIOR TO TRANSFER AT PT REQUEST. NO C/O PAIN OR DISCOMFORT NOTED BY PT. PT IS CURRENTLY IN RECLINER HE HAS TROUBLE SLEEPING IN BED. ENCOURGE LEG ELEVATION. HOURLY ROUNDING FOR PT SAFETY, USE OF BED ALARM ON CHAIR ALARM IN USE PER FALL PRECUATIONS. CALL LIGHT WITHIN REACH.
[2020-05-21 05:21] LABS: ABSOLUTE BASOPHILS 0.1 thou/uL (0.0-0.2); ABSOLUTE LYMPHOCYTES 0.5 thou/uL (0.8-5.3); ABSOLUTE MONOCYTES 0.8 thou/uL (0.0-1.2); ABSOLUTE NEUTROPHILS 17.9 thou/uL (1.6-8.1); BASOPHILS 0.4 %; HEMATOCRIT 36.4 % (42.0-52.0); HEMOGLOBIN 12.2 gm/dL (14.0-18.0); LYMPHOCYTES 2.6 %; MCH 31.1 pg (26.0-34.0); MCHC 33.4 g/dL (28.0-37.0); MCV 92.9 fL (80.0-100.0); MONOCYTES 4.2 %; MPV 9.3 fl. (7.2-11.1); NUCLEATED RBCS 0 /100WBC; PLATELET COUNT* 156 thou/uL (150-400); POLYS 92.8 %; RBC 3.92 mil/uL (4.50-6.00); RDW-CV 15.1 % (10.5-14.5); WBC 19.3 thou/uL (4.0-11.0)
[2020-05-21 05:41] LABS: ALBUMIN 2.5 g/dL (3.4-5.0); CALCIUM 8.3 mg/dL (8.5-10.1); CREATININE 1.4 mg/dL (0.6-1.3); MAGNESIUM 2.2 mg/dL (1.8-2.4); POTASSIUM 4.3 mmol/L (3.5-5.1); TOTAL BILIRUBIN 0.5 mg/dL (<0.1-1.0); TOTAL PROTEIN 6.4 g/dL (6.4-8.2)
[2020-05-21 08:00] VITALS: BP 132/72
[2020-05-21 12:58] VITALS: BP 173/90
[2020-05-21 15:57] VITALS: BP 176/78
--- NOTE | 2020-05-21 16:33 | NUR ---
PT CALLS APPROPRIATELY FOR ASSIST. PT UP TO CHAIR MOST OF SHIFT. SOA WITH EXERTION. POOR APPETITE. AFIB ON MONITOR. DTR AT AND UPDATED ON PLAN OF CARE
--- NOTE | 2020-05-21 16:35 | NUR ---
CM SPOKE TO THE PT AND HIS DTR TO DISCUSS DISCHARGE PLANNING AND NEED FOR REHAB AT D/C. PT INITIALLY DECILINED. HOWEVER WITH EDUCATION AND ENCOURAGEMENT FROM PT'S DTR HE IS NOW IN AGREEMENT. PT'S DTR INFORMS THAT SHE IS ABLE TO ASSIST THE PT AT D/C OR IF HE NEEDS TO D/C TO HER HOME SHE IS ABLE TO DO THAT WELL. CM INFORMED CARBON BRUSH MAKER OF ALL OF THE ABOVE INFO. CM WILL REMAIN AVAILABLE TO ASSIST AND FOLLOW NEEDED.
[2020-05-21 20:00] VITALS: BP 178/80
[2020-05-22] VITALS: BP 131/99
[2020-05-22 04:00] VITALS: BP 178/92
[2020-05-22 08:00] VITALS: BP 162/77
[2020-05-22] MEDS ORDERED: CEFPODOXIME PR100 MG PO (10:12)
[2020-05-22] MEDS ORDERED: PREDNISONE 10 M10 MG PO (10:12)
--- NOTE | 2020-05-22 10:37 | NUR ---
0786 ASSUMED CARE OF PATIENT. PLEASE SEE DOCUMENTED ASSESSMENT. PT UP IN RECLINER AT THIS TIME
[2020-05-22 11:14] VITALS: BP 162/77
--- NOTE | 2020-05-22 11:27 | NUR ---
CM SPOKE TO THE PT AND HIS DTR TO DISCUSS DISCHARGE PLANNING NEEDS AND HIS D/C HOME TODAY WITH HH. PT AND DTR DECLINE HH DESPITE CM EDUCATION AND ECOURAGEMENT OF THE BENEFITS OF HH. CM INFORMED THE PHYSICIAN AND RN IN-CHARGE OF THE NM OF THE ABOVE INFO. CM WILL REMAIN AVAILABLE TO ASSIST AND FOLLOW NEEDED.
--- NOTE | 2020-05-22 13:11 | CON ---
[address] [address] CONSULTATION Name: JENNIFER NELSON Room: [address] IN M.R.#: [id number] Admission: 05/18/20 Attend Phys: Carl Angel, Discharge: Date of : 40 Report #: [id number] THIS REPORT FOR: //name// cc: Todd Holden Bradley L. DO ~ THIS REPORT FOR: //name// CC: Todd Angel DATE OF SERVICE: 05/19/2020 Consult has been requested by Dr. Salas. INDICATION FOR CONSULTATION: Acute respiratory failure secondary to sepsis. HISTORY OF PRESENT ILLNESS: This is a 79-year-old gentleman. He has a history of smoking in the past. I am unable to quantify exactly at this time. It is also not fully clear to me as to whether or not the patient uses oxygen at home. The patient does appear to have a history consistent with obstructive sleep apnea, not previously diagnosed as well. He does have a history of congestive heart failure with diastolic dysfunction and he does have mild elevation in his creatinine at his baseline. He has atrial fibrillation. He is on anticoagulation with Xarelto at home, however, his compliance is not certain. The patient was recently admitted to this hospital and was treated for cellulitis of lower extremities, initially received vancomycin as well as ceftriaxone and then was switched over to minocycline. The patient is now here with the similar complaints. There is marked swelling as well as erythema and pain in the left lower extremity. He has also been short of breath and has been tachypneic. Respiratory rates up to the 40 have been recorded. The patient, however, is only on 2 liters of oxygen and is maintaining O2 saturation with this. The patient initially also had atrial fibrillation with RVR. His heart rate is now, however, down to 86. He does have a fever of 38.2. His COVID-19 screen was negative. The patient is arousable, but markedly drowsy and therefore unable to provide a further history or review of systems. PAST MEDICAL HISTORY: Recent admission with cellulitis of lower extremity, mild elevation in creatinine to around 1.3-1.4 at baseline, congestive heart failure secondary to diastolic dysfunction. The patient may have oxygen 2 liters at home, however, I am unable to substantiate this at this time. Atrial fibrillation, on anticoagulation, unclear if he in fact takes the anticoagulation as prescribed. Hypertension, gout, tonsillectomy, Leiva's palsy. There is a clinical history consistent with obstructive sleep apnea as well as COPD, neither have been previously diagnosed. His last echo shows a normal left ventricular ejection fraction with diastolic dysfunction, [place] [address] CONSULTATION Name: JENNIFER NELSON Room: [address] IN ..#: [id number] Admission: 05/18/20 Attend Phys: Carl Angel, Discharge: Date of : 40 Report #: [id number] hypertrophy, and the pulmonary artery systolic around 42. SOCIAL HISTORY: Smoker 1 pack a day more than 30 years, has now discontinued. It is not known to me exactly when he discontinued. No known history of heavy alcohol use or illegal drug use. CURRENT MEDICATIONS: List in [facility] reviewed. HOME MEDICATIONS: List also in [facility] reviewed. Recent use of minocycline as above. FAMILY HISTORY: There is no pertinent family history known at this time. PHYSICAL EXAMINATION: GENERAL: He is drowsy. He is arousable. He provided a limited history. VITAL SIGNS: He has a pulse of 86 and a blood pressure of 150/83. He is on 2 liters oxygen. He is saturating 93%-94%. He has a fever of 38.2. HEENT: Head is normocephalic and atraumatic. Pupils are equal and reactive. There is no throat erythema. There is no thrush in his throat, but his airway is very narrow. It is around Mallampati 4. NECK: Does not show raised JVP, asymmetry, mass or lymph nodes. CHEST: Shows symmetrical expansion on inspection and palpation. On auscultation, however, breath sounds are decreased at the left lung base. HEART: Irregular. There is no murmur. ABDOMEN: Mildly distended. It is nontender. EXTREMITIES: Lower extremities show no edema and no calf tenderness on the right side. On the left side, there is marked erythema, swelling as well as tenderness of the left calf and lower leg. SKIN: Markedly erythematous and hot on the left side. Normal skin at the right lower extremity. NEUROLOGICAL: Moves all extremities bilaterally equally and spontaneously with no focal deficit identified. LABORATORY DATA: The patient's chest x-ray is reviewed, compared to the patient's previous chest x-rays as well as a CT chest performed a couple of years ago. There is chronic opacity at the left lung base. I do not see any other new abnormalities. There is a right IJ line in place. The patient had arterial blood gases, which show a pCO2 of 43. CBC results show bandemia up to 14% yesterday and leukocytosis as well as chemistries which showed creatinine of 1.5 in [facility] reviewed. Coagulation studies in [facility] reviewed. Urinalysis as above. COVID-19 screen negative. ASSESSMENT AND PLAN: 1. Acute respiratory failure with likely chronic component. Continue to titrate oxygen. I will try to get more information regarding the patient's baseline oxygen use. He does appear to have underlying obstructive sleep apnea. [address] [address] CONSULTATION Name: JENNIFER NELSON Room: [address] IN [facility].#: [id number] Admission: 05/18/20 Attend Phys: Carl Angel, Discharge: Date of : 40 Report #: [id number] We will go ahead and place him on BiPAP in average volume assured pressure support mode while asleep and p.r.n. 2. Sepsis secondary to cellulitis. The patient is on Zosyn. He has recently been treated with minocycline and briefly received ceftriaxone and vancomycin when he was last here. Considering this history, I decided to go ahead and give him MRSA coverage. He will be high risk for vancomycin toxicity and therefore, I will add linezolid. The patient currently is markedly somnolent and therefore it is ordered IV, could change to p.o. later. 3. Congestive heart failure with diastolic dysfunction. Cardiology service on the case. 4. Chronic atrial fibrillation. He is noted to be on anticoagulation at home, unknown to me as to whether the patient in fact takes Xarelto regularly. The patient will benefit from continuing anticoagulation. If he is more awake soon, then oral anticoagulation could be started. Otherwise, may need to consider parenteral. 5. Obstructive sleep apnea, on clinical grounds appears to have obstructive sleep apnea, not previously diagnosed. BiPAP while asleep for now. Recommend an outpatient sleep study later. 6. Suspected chronic obstructive pulmonary disease. We will go ahead and start him on nebulized bronchodilators as well as Solu-Medrol. We will watch glucoses and treat him with insulin sliding scale if indicated. 7. Morbid obesity. Body mass index noted to be elevated to 48. 8. Intravenous access. The patient has a central line. 9. Renal insufficiency. The patient's baseline creatinine noted to be 1.3-1.4. Current creatinine is 1.5. He has received fluid resuscitation for sepsis. Watch fluid status closely. The patient is critically ill at this time. Total time spent providing critical care to this patient today exceeds 40 minutes. <ELECTRONICALLY SIGNED> By: Yovany Sands MD 05/22/20 1311 1205 [id number] Sands MD /nt
--- NOTE | 2020-05-22 14:03 | NUR ---
[address] DISCONTINUED PER HOSPITAL POLICY. DISCHARGE EDUCATION DONE WITH PATIENBT AND DAUGHTER. DISMISSED TO HOME WITH SELF CARE
[2020-05-22 14:04] VITALS: BP 162/77
[2020-05-23] MEDS ORDERED: CEFDINIR300 MG PO (13:22)
== END 2020-05-22 13:00 | disposition home or self-care (01) | DRG 871 ==
LOC: M.ERS 19:44 → M.2W 22:54 → M.TBA-ER 22:54 → M.ICU 22:54 → M.2W 05-20 19:00
PROVIDERS: Internal Medicine; Internal Medicine Critical Care Medicine; Personal Emergency Response Attendant; ADMIT Family Medicine; ATTEND Family Medicine
PROC: B548ZZA Ultrasonography of Superior Vena Cava, Guidance (ICD-10-PCS; principal; 2020-05-18)
PROC: 02HV33Z Insertion of Infusion Device into Superior Vena Cava, Percutaneous Approach (ICD-10-PCS; principal; 2020-05-18)
PROC: 5A09357 Assistance with Respiratory Ventilation, Less than 24 Consecutive Hours, Continuous Positive Airway Pressure (ICD-10-PCS; 2020-05-20)
DX: A41.9 Sepsis, unspecified organism (principal); G93.41 Metabolic encephalopathy; J96.21 Acute and chronic respiratory failure with hypoxia; J96.22 Acute and chronic respiratory failure with hypercapnia; I50.30 Unspecified diastolic (congestive) heart failure; I48.20 Chronic atrial fibrillation, unspecified; L03.116 Cellulitis of left lower limb; I11.0 Hypertensive heart disease with heart failure; Z20.828 Contact with and (suspected) exposure to other viral communicable diseases; M10.9 Gout, unspecified; G47.33 Obstructive sleep apnea (adult) (pediatric); J44.9 Chronic obstructive pulmonary disease, unspecified; E66.01 Morbid (severe) obesity due to excess calories; I89.0 Lymphedema, not elsewhere classified; J11.1 Influenza due to unidentified influenza virus with other respiratory manifestations; K72.90 Hepatic failure, unspecified without coma; I95.9 Hypotension, unspecified; I87.8 Other specified disorders of veins; I87.2 Venous insufficiency (chronic) (peripheral); Z88.8 Allergy status to other drugs, medicaments and biological substances; Z87.891 Personal history of nicotine dependence; Z79.82 Long term (current) use of aspirin; Z79.899 Other long term (current) drug therapy

== ENCOUNTER 2020-06-09 15:28 | Inpatient (IN) | payer OTHER ==
[~2020-06-09] VITALS: Ht 180.3 cm; Wt 158.8 kg
[~2020-06-09 15:28] MED LIST changes: +CEFDINIR300 MG PO; +CEFPODOXIME PR100 MG PO
[2020-06-09 15:32] VITALS: BP 144/71
[2020-06-09 16:22] LABS: BE 4.8 mmol/L (-2 to +3); PCO2 47.2 mmHg (35.0-45.0); PO2 96.2 mmHg (75.0-100.0); pH 7.424 (7.340-7.450)
[2020-06-09 16:25] LABS: URINE BILIRUBIN NEGATIVE (Negative); URINE BLOOD NEGATIVE (Negative); URINE CLARITY CLEAR; URINE COLOR YELLOW; URINE GLUCOSE-RANDOM TRACE (Negative); URINE KETONES NEGATIVE (Negative); URINE LEUKOCYTES-REFLEX NEGATIVE (Negative); URINE NITRITE-REFLEX NEGATIVE (Negative); URINE PROTEIN NEGATIVE (Negative); URINE UROBILINOGEN 0.2 E.U./dl (0.2-1.0)
[2020-06-09 16:26] LABS: HEMOGLOBIN 14.2 gm/dL (14.0-18.0); MCH 30.9 pg (26.0-34.0); MCHC 32.9 g/dL (28.0-37.0); MPV 8.9 fl. (7.2-11.1); NUCLEATED RBCS 0 /100WBC; PLATELET COUNT* 241 thou/uL (150-400); RBC 4.58 mil/uL (4.50-6.00); RDW-CV 15.4 % (10.5-14.5); WBC 18.7 thou/uL (4.0-11.0)
[2020-06-09 16:35] LABS: CALCIUM 9.2 mg/dL (8.5-10.1); CREATININE 1.5 mg/dL (0.6-1.3); POTASSIUM 3.7 mmol/L (3.5-5.1)
[2020-06-09 16:37] LABS: APTT 25.5 Seconds (25.0-31.3); INR 1.3
[2020-06-09 16:46] LABS: ALBUMIN 3.7 g/dL (3.4-5.0); MAGNESIUM 1.5 mg/dL (1.8-2.4); TOTAL BILIRUBIN 0.7 mg/dL (<0.1-1.0); TOTAL PROTEIN 7.7 g/dL (6.4-8.2)
[2020-06-09 16:51] LABS: ABSOLUTE LYMPHOCYTES 1.5 thou/uL (0.8-5.3); ABSOLUTE MONOCYTES 0.6 thou/uL (0.0-1.2); ABSOLUTE NEUTROPHILS 16.6 thou/uL (1.6-8.1); PLATELET ESTIMATE ADEQUATE
[2020-06-09 21:50] VITALS: BP 102/36
[2020-06-09 22:02] VITALS: BP 132/59
[2020-06-10 04:00] VITALS: BP 95/69
[2020-06-10 08:00] VITALS: BP 107/54
[2020-06-10 10:54] LABS: ABSOLUTE BASOPHILS 0.1 thou/uL (0.0-0.2); ABSOLUTE EOSINOPHILS 0.2 thou/uL (0.0-0.7); ABSOLUTE LYMPHOCYTES 1.2 thou/uL (0.8-5.3); ABSOLUTE MONOCYTES 0.6 thou/uL (0.0-1.2); ABSOLUTE NEUTROPHILS 10.7 thou/uL (1.6-8.1); BASOPHILS 1.1 %; EOSINOPHILS 1.5 %; HEMATOCRIT 36.5 % (42.0-52.0); HEMOGLOBIN 11.8 gm/dL (14.0-18.0); LYMPHOCYTES 9.4 %; MCH 30.6 pg (26.0-34.0); MCHC 32.3 g/dL (28.0-37.0); MCV 94.9 fL (80.0-100.0); MONOCYTES 4.8 %; MPV 9.1 fl. (7.2-11.1); NUCLEATED RBCS 0 /100WBC; PLATELET COUNT* 183 thou/uL (150-400); POLYS 83.2 %; RBC 3.84 mil/uL (4.50-6.00); RDW-CV 15.4 % (10.5-14.5); WBC 12.9 thou/uL (4.0-11.0)
[2020-06-10 11:14] LABS: ALBUMIN 2.7 g/dL (3.4-5.0); CREATININE 1.2 mg/dL (0.6-1.3); POTASSIUM 3.4 mmol/L (3.5-5.1); TOTAL BILIRUBIN 0.7 mg/dL (<0.1-1.0); TOTAL PROTEIN 6.1 g/dL (6.4-8.2)
[2020-06-10 12:00] VITALS: BP 111/55
--- NOTE | 2020-06-10 15:46 | EKG ---
[place] [address] ELECTROCARDIOGRAM REPORT Name: MAURY NELSONVIN Riky Room: [address] ADM IN M.R.#: [id number] Admission: 06/09/20 Attend Phys: Carl Kang Discharge: Date of : 40 Date of Service: 06/09/20 1534 Report #: [id number] THIS REPORT FOR: //name// [facility] ED Test Date: 2020-06-09 Test Time: 15:34:04 Pat Name: JENNIFER NELSON Department: Room: [address] Gender: M Supervisor Webbing: LAYLA : 1940 Requested By: Samia Armendariz Order Number: [id number] Elias MD: Angelo Saravia Measurements Intervals [place] Rate: 139 P: MS: QRS: -37 QRSD: 97 T: 47 QT: 306 QTc: 466 Interpretive Statements Atrial fibrillation Left axis deviation Low voltage, precordial leads Anteroseptal infarct, old possible Compared to ECG 05/18/2020 19:49:06 Left-axis deviation now present Myocardial infarct finding now suggested Electronically Signed On 06-10-2020 15:46:48 CDT by Angelo Saravia [email or web address] <ELECTRONICALLY SIGNED> By: Angelo Saravia MD, FACC 06/10/20 1546 1534 1534 Angelo Saravia MD, FACC /EPI
[2020-06-10 16:00] VITALS: BP 136/64
[2020-06-10 20:00] VITALS: BP 98/75
[2020-06-11] VITALS (7 sets, daily range): BP systolic 118–154; BP diastolic 60–94
[2020-06-11 06:13] LABS: ABSOLUTE BASOPHILS 0.1 thou/uL (0.0-0.2); ABSOLUTE EOSINOPHILS 0.3 thou/uL (0.0-0.7); ABSOLUTE LYMPHOCYTES 1.2 thou/uL (0.8-5.3); ABSOLUTE MONOCYTES 0.6 thou/uL (0.0-1.2); ABSOLUTE NEUTROPHILS 7.7 thou/uL (1.6-8.1); BASOPHILS 1.4 %; EOSINOPHILS 2.7 %; HEMATOCRIT 36.8 % (42.0-52.0); LYMPHOCYTES 11.7 %; MCH 31.1 pg (26.0-34.0); MCHC 32.7 g/dL (28.0-37.0); MCV 95.1 fL (80.0-100.0); MONOCYTES 5.9 %; MPV 10.3 fl. (7.2-11.1); NUCLEATED RBCS 0 /100WBC; PLATELET COUNT* 200 thou/uL (150-400); POLYS 78.3 %; RBC 3.87 mil/uL (4.50-6.00); RDW-CV 15.6 % (10.5-14.5); WBC 9.8 thou/uL (4.0-11.0)
[2020-06-11 06:33] LABS: ALBUMIN 2.7 g/dL (3.4-5.0); CALCIUM 8.4 mg/dL (8.5-10.1); CREATININE 1.2 mg/dL (0.6-1.3); TOTAL BILIRUBIN 0.6 mg/dL (<0.1-1.0); TOTAL PROTEIN 6.7 g/dL (6.4-8.2)
[2020-06-11 06:41] LABS: PREALBUMIN 15.4 mg/dL (18.0-35.7)
[2020-06-12 05:11] LABS: ABSOLUTE BASOPHILS 0.1 thou/uL (0.0-0.2); ABSOLUTE EOSINOPHILS 0.3 thou/uL (0.0-0.7); ABSOLUTE LYMPHOCYTES 1.3 thou/uL (0.8-5.3); ABSOLUTE MONOCYTES 0.8 thou/uL (0.0-1.2); ABSOLUTE NEUTROPHILS 6.5 thou/uL (1.6-8.1); EOSINOPHILS 3.4 %; LYMPHOCYTES 14.5 %; MCHC 32.5 g/dL (28.0-37.0); MCV 95.4 fL (80.0-100.0); MONOCYTES 8.5 %; MPV 9.9 fl. (7.2-11.1); NUCLEATED RBCS 0 /100WBC; PLATELET COUNT* 200 thou/uL (150-400); POLYS 72.6 %; RBC 3.88 mil/uL (4.50-6.00); RDW-CV 15.5 % (10.5-14.5); WBC 8.9 thou/uL (4.0-11.0)
[2020-06-12 05:33] LABS: CALCIUM 8.7 mg/dL (8.5-10.1); POTASSIUM 4.1 mmol/L (3.5-5.1)
[2020-06-12 07:30] VITALS: BP 151/78
[2020-06-12 12:00] VITALS: BP 156/75
[2020-06-12 12:58] LABS: pH 7.364 (7.340-7.450)
[2020-06-12 13:00] LABS: PCO2 50.7 mmHg (35.0-45.0)
[2020-06-12 16:00] VITALS: BP 127/53
[2020-06-12 20:00] VITALS: BP 133/81
[2020-06-13 00:09] VITALS: BP 146/68
[2020-06-13 03:45] LABS: ABSOLUTE BASOPHILS 0.1 thou/uL (0.0-0.2); ABSOLUTE EOSINOPHILS 0.4 thou/uL (0.0-0.7); ABSOLUTE LYMPHOCYTES 1.6 thou/uL (0.8-5.3); ABSOLUTE MONOCYTES 0.7 thou/uL (0.0-1.2); ABSOLUTE NEUTROPHILS 5.6 thou/uL (1.6-8.1); BASOPHILS 0.9 %; EOSINOPHILS 4.2 %; HEMATOCRIT 39.2 % (42.0-52.0); HEMOGLOBIN 12.7 gm/dL (14.0-18.0); MCH 30.7 pg (26.0-34.0); MCHC 32.4 g/dL (28.0-37.0); MCV 94.6 fL (80.0-100.0); MONOCYTES 8.8 %; MPV 9.6 fl. (7.2-11.1); NUCLEATED RBCS 0 /100WBC; PLATELET COUNT* 255 thou/uL (150-400); POLYS 67.1 %; RBC 4.14 mil/uL (4.50-6.00); RDW-CV 15.4 % (10.5-14.5); WBC 8.3 thou/uL (4.0-11.0)
[2020-06-13 03:58] LABS: CALCIUM 8.9 mg/dL (8.5-10.1); CREATININE 1.3 mg/dL (0.6-1.3); MAGNESIUM 1.9 mg/dL (1.8-2.4); POTASSIUM 3.7 mmol/L (3.5-5.1); TOTAL BILIRUBIN 0.6 mg/dL (<0.1-1.0); TOTAL PROTEIN 7.1 g/dL (6.4-8.2)
[2020-06-13 07:05] VITALS: BP 138/74
[2020-06-13 16:10] VITALS: BP 152/87
[2020-06-13 21:14] VITALS: BP 125/68
[2020-06-14 05:19] LABS: CREATININE 1.5 mg/dL (0.6-1.3); MAGNESIUM 1.8 mg/dL (1.8-2.4); POTASSIUM 3.7 mmol/L (3.5-5.1)
[2020-06-14 07:15] VITALS: BP 106/42
[2020-06-14] MEDS ORDERED: LINEZOLID600 MG PO (10:41)
[2020-06-14 15:06] VITALS: BP 106/42
[2020-06-14 15:12] VITALS: BP 106/42
[2020-06-14 15:24] VITALS: BP 106/42
--- NOTE | 2020-06-16 21:02 | CON ---
[address] [address] CONSULTATION Name: LESLIEJENNIFER Riky Room: [address] IN M.R.#: [id number] Admission: 06/09/20 Attend Phys: Carl Angel, Discharge: 06/14/20 Date of : 40 Report #: [id number] THIS REPORT FOR: //name// cc: Todd Holden Bradley L. DO ~ THIS REPORT FOR: //name// DATE OF SERVICE: 06/12/2020 REQUESTING PHYSICIAN: Dr. Alli Maldonado. INDICATION FOR CONSULTATION: Hypercarbic respiratory failure, possible indication for Trilogy. HISTORY OF PRESENT ILLNESS: This 79-year-old gentleman with past medical history is as mentioned below. I had seen him recently during a previous hospitalization. The patient was on a BiPAP briefly; however, he did not tolerate it well. I had recommended that he be set up with a BiPAP or Trilogy at home; however, the patient had declined. The patient did have significant cellulitis during a previous hospitalization, we had to check venous Dopplers despite this reported history of use of Xarelto at home for atrial fibrillation because his compliance was not certain, the patient had improved; however, he is now admitted again with similar complaints. He has had swelling of lower extremities. He has had erythema of lower extremities, which is more on the left side than the right. The patient's baseline creatinine previously has been mildly elevated to around 1.3-1.4. He has been fluid resuscitated since he was admitted. In fact, his creatinine now dropped down to 1.0. The patient does have shortness of breath. He does have some cough as well. There is no sputum. There is no chest pain. He does not have upper respiratory complaints. He says he has had some pain in his lower extremities other than this in fact is feeling better than when he was admitted. He continues to have disturbed sleep at night as well as sleepiness during the day. These symptoms remain at baseline. The patient answers to the negative for 12 questions for review of systems except as mentioned above. PAST MEDICAL HISTORY: Congestive heart failure secondary to diastolic dysfunction as well as atrial fibrillation. There is a recent echo, which shows a left ventricular ejection fraction of 55-60%. The pulmonary artery systolic at that time was 36. The patient's most previous creatinines have been mildly elevated in the range of 1.3-1.4. Persistent cellulitis for a while now, see my previous consult and notes for further details. The patient is prescribed Xarelto for atrial fibrillation at home; however, it is not clear if he takes it regularly, hypertension, gout, cholecystectomy, Leiva's palsy. There is a clinical history consistent with obstructive sleep apnea as well as COPD. The patient has not previously been diagnosed. He also does [place] [address] CONSULTATION Name: JENNIFER NELSON Room: [address]#: [id number] Admission: 06/09/20 Attend Phys: Carl Angel, Discharge: 06/14/20 Date of : 40 Report #: [id number] SOCIAL HISTORY: Smoker more than a pack a day for more than 30 years. He has now discontinued, exactly when he discontinued is not known to me. No known history of heavy alcohol use or illegal drug use. CURRENT MEDICATIONS: List in [employer] reviewed. HOME MEDICATIONS: List in [employer] reviewed. FAMILY HISTORY: There is no pertinent family history known at this time. ALLERGIES: REPORTED TO BE ALLERGIC TO AMLODIPINE. PHYSICAL EXAMINATION: GENERAL: Alert, awake and oriented, does not appear to be in any distress. VITAL SIGNS: has a pulse of 73 and a blood pressure of 156/75. He is saturating 96%. He is on 1 liter oxygen via nasal cannula, respiratory rate has been high at times up to the mid 30s earlier, however at the time of my examination, it was in the low 20s. He is afebrile with a temperature of 36.9, body mass index is elevated to 48.8. HEENT: Head is normocephalic and atraumatic. Pupils are equal and reactive. There is no throat erythema. Airway is narrow around Mallampati 3. There is no thrush in his throat. There is no erythema. NECK: Does not show raised JVP, asymmetry, mass or lymph nodes. CHEST: Symmetrical expansion on inspection and palpation. On auscultation, breath sounds are bilaterally equal, but decreased. I do not hear any added sounds. HEART: Irregular, but there is no murmur. ABDOMEN: Mildly distended, nontender. EXTREMITIES: Lower extremities do show 2+ edema bilaterally. He had crepe bandages on his lower calf. I did not remove these were exam. I am told that there is some ulceration as well. There is erythema of the left leg over the visible areas. There is some calf tenderness on the left side as well. SKIN: Visible skin is dry and intact. NEUROLOGICAL: Moves all extremities bilaterally equally and spontaneously with no focal deficit identified. LABORATORY DATA: The patient had a chest x-ray done today and I reviewed it and compared with the patient's previous chest x-rays. There is a radiopaque density at the left lung base, which is not significantly changed compared with the patient's previous chest x-rays. The patient's arterial blood gases, which do show significant pCO2 retention today at 50.7, in [facility] reviewed. CBC as well as coagulation studies and chemistries in [facility] reviewed and discussed above. The urinalysis in [facility] reviewed. COVID-19 screen is negative. ASSESSMENT AND PLAN: [place] [address] CONSULTATION Name: JENNIFER NELSON Room: [address]#: [id number] Admission: 06/09/20 Attend Phys: Carl Angel, Discharge: 06/14/20 Date of : 40 Report #: [id number] 1. Dmequ-ix-ikfqeor hypoxemic and hypercarbic respiratory failure. I strongly recommend use of average volume assured pressure support or BiPAP while asleep longterm, average volume assured pressure support will be the better option for the patient. The patient had not done well with this previously and had previously declined. The patient is now reluctantly agreeing, I will go ahead and order a BiPAP and follow response. The patient is on oxygen while asleep long-term. 2. Cellulitis, lower extremities. My suspicion is that the patient has MRSA as high even in the absence of any positive culture. I therefore strongly recommend continuing MRSA coverage for 10-14 days. The patient has previously had minocycline recently therefore this is likely resistant to tetracycline. Considering that, we are trying to diurese the patient I switched him over to linezolid p.o. from vancomycin to reduce risk of nephrotoxicity. He also remains on ceftriaxone. 3. Erythema, left lower extremity. The patient has previously been on Xarelto for chronic atrial fibrillation. The patient's compliance however, is not certain. Therefore, I would like to do venous Dopplers. 4. Obstructive sleep apnea, on clinical grounds. See discussion above. 5. Chronic obstructive pulmonary disease, on clinical grounds. I will go ahead and start him on nebulized bronchodilators. I held off on steroids for now. Recommend obtaining outpatient PFTs to assess further. 6. Congestive heart failure with diastolic dysfunction and mild chronic renal insufficiency, mostly the patient's creatinine has been mildly elevated to around 1.3-1.4. Returning to normal at 1.0 now, I do agree that he needs diuresis. Agree with Lasix. I discontinued his IV fluids. If his creatinine rises, then I will give him some albumin. 7. Chronic atrial fibrillation. See discussion above. Plan is to restart Xarelto. 8. Radiopaque density left lung base. This is chronic. Regardless, I would like to define this further with a CT chest without contrast. We will verify that no thoracentesis is indicated before starting Xarelto. 9. Morbid obesity. Weight loss is strongly recommended. Thanks for this consultation. <ELECTRONICALLY SIGNED> By: Yovany Sands MD 06/16/20 2102 1517 [id number] Sands MD /nt
== END 2020-06-14 16:53 | disposition home or self-care (01) | DRG 871 ==
LOC: M.ERS 15:28 → M.ORTHSURG 18:09 → M.2W 18:09 → M.TBA-ER 18:09 → M.2W 22:10 → M.ORTHSURG 06-11 17:25
PROVIDERS: Internal Medicine; Internal Medicine Critical Care Medicine; Personal Emergency Response Attendant; ADMIT Family Medicine; ATTEND Family Medicine
PROC: 5A09357 Assistance with Respiratory Ventilation, Less than 24 Consecutive Hours, Continuous Positive Airway Pressure (ICD-10-PCS; principal; 2020-06-12)
DX: A41.9 Sepsis, unspecified organism (principal); I50.33 Acute on chronic diastolic (congestive) heart failure; G93.41 Metabolic encephalopathy; J96.22 Acute and chronic respiratory failure with hypercapnia; J96.21 Acute and chronic respiratory failure with hypoxia; E66.2 Morbid (severe) obesity with alveolar hypoventilation; Z68.42 Body mass index [BMI] 45.0-49.9, adult; L03.116 Cellulitis of left lower limb; I13.0 Hypertensive heart and chronic kidney disease with heart failure and stage 1 through stage 4 chronic kidney disease, or unspecified chronic kidney disease; L97.929 Non-pressure chronic ulcer of unspecified part of left lower leg with unspecified severity; L97.919 Non-pressure chronic ulcer of unspecified part of right lower leg with unspecified severity; I48.20 Chronic atrial fibrillation, unspecified; M10.9 Gout, unspecified; R40.4 Transient alteration of awareness; J44.9 Chronic obstructive pulmonary disease, unspecified; B95.62 Methicillin resistant Staphylococcus aureus infection as the cause of diseases classified elsewhere; N18.9 Chronic kidney disease, unspecified; I87.8 Other specified disorders of veins; Z20.828 Contact with and (suspected) exposure to other viral communicable diseases; Z79.01 Long term (current) use of anticoagulants; Z79.82 Long term (current) use of aspirin; Z79.899 Other long term (current) drug therapy; Z88.8 Allergy status to other drugs, medicaments and biological substances; Z91.19 Patient's noncompliance with other medical treatment and regimen; Z28.21 Immunization not carried out because of patient refusal

== ENCOUNTER 2020-07-25 10:33 | Inpatient (IN) | payer OTHER ==
[~2020-07-25] VITALS: Ht 180.3 cm; Wt 90.7 kg
[~2020-07-25 10:33] MED LIST changes: +LINEZOLID600 MG PO
[2020-07-25 10:38] VITALS: BP 148/79
[2020-07-25 11:05] LABS: ABSOLUTE BASOPHILS 0.2 thou/uL (0.0-0.2); ABSOLUTE EOSINOPHILS 0.2 thou/uL (0.0-0.7); ABSOLUTE LYMPHOCYTES 1.6 thou/uL (0.8-5.3); ABSOLUTE MONOCYTES 1.1 thou/uL (0.0-1.2); ABSOLUTE NEUTROPHILS 14.3 thou/uL (1.6-8.1); HEMATOCRIT 37.4 % (42.0-52.0); HEMOGLOBIN 12.2 gm/dL (14.0-18.0); LYMPHOCYTES 9.1 %; MCH 30.7 pg (26.0-34.0); MCHC 32.8 g/dL (28.0-37.0); MCV 93.6 fL (80.0-100.0); MONOCYTES 6.5 %; MPV 8.6 fl. (7.2-11.1); NUCLEATED RBCS 0 /100WBC; PLATELET COUNT* 261 thou/uL (150-400); POLYS 82.4 %; RBC 3.99 mil/uL (4.50-6.00); WBC 17.4 thou/uL (4.0-11.0)
[2020-07-25 11:11] LABS: CALCIUM 8.5 mg/dL (8.5-10.1); CREATININE 1.7 mg/dL (0.6-1.3); POTASSIUM 3.3 mmol/L (3.5-5.1)
[2020-07-25 11:12] LABS: APTT 31.8 Seconds (25.0-31.3); INR 1.5; PROTIME 15.2 Seconds (9.20-11.50)
[2020-07-25 11:21] LABS: ALBUMIN 3.1 g/dL (3.4-5.0); TOTAL PROTEIN 7.6 g/dL (6.4-8.2)
[2020-07-25 16:45] VITALS: BP 170/67
[2020-07-26] VITALS: BP 148/80
[2020-07-26 04:10] VITALS: BP 114/69
[2020-07-26 04:51] LABS: CALCIUM 9.3 mg/dL (8.5-10.1); CREATININE 1.6 mg/dL (0.6-1.3); POTASSIUM 3.6 mmol/L (3.5-5.1)
[2020-07-26 04:54] LABS: MAGNESIUM 1.8 mg/dL (1.8-2.4); PHOSPHORUS* 1.7 mg/dL (2.5-4.9)
[2020-07-26 08:00] VITALS: BP 129/63
--- NOTE | 2020-07-26 12:44 | EKG ---
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1940 Requested By: Lino Olmos Order Number: [id number] MD: Damian Rider Measurements Intervals [place] Rate: 99 P: VT: QRS: -20 QRSD: 94 T: QT: 382 QTc: 491 Interpretive Statements Atrial fibrillation Abnormal R-wave progression, late transition Inferior infarct, old Compared to ECG 06/09/2020 15:34:04 Left-axis deviation no longer present Myocardial infarct finding still present Electronically Signed On 07-26-2020 12:44:21 TOGGLE PRESS OPERATOR by Damian Rider [email or web address] <ELECTRONICALLY SIGNED> By: Damian Rider MD, FACC 07/26/20 1244 1050 1050 Damian Rider MD, FACC /EPI
[2020-07-26 16:41] VITALS: BP 160/67
[2020-07-26 20:34] VITALS: BP 128/60
[2020-07-27] VITALS: BP 129/61
[2020-07-27 04:00] VITALS: BP 127/62
[2020-07-27 05:17] LABS: CALCIUM 9.2 mg/dL (8.5-10.1); CREATININE 1.6 mg/dL (0.6-1.3); POTASSIUM 3.7 mmol/L (3.5-5.1)
[2020-07-27 08:30] VITALS: BP 135/64
--- NOTE | 2020-07-27 12:56 | CON ---
[address] [address] CONSULTATION Name: JENNIFER NELSON Room: [address] IN [place].#: [id number] Admission: 07/25/20 Attend Phys: Fallon De Santiago Discharge: Date of : 40 Report #: [id number] THIS REPORT FOR: //name// cc: Todd Holden Bradley L. DO ~ CARDIOLOGY CONSULTATION INDICATION: Acute diastolic heart failure and chronic atrial fibrillation. HISTORY OF PRESENT ILLNESS: The patient is a very pleasant 79-year-old gentleman known to our service. He has chronic atrial fibrillation. He is chronically anticoagulated and having no bleeding problems. He has had several admissions in the last 6 months or so for acute on chronic diastolic heart failure and volume overload. The patient was seen in the Emergency Room yesterday with acute hypoxia with O2 saturations in the 70s. He is on 2 liters of oxygen at home while sleeping. The patient was admitted with hypoxic respiratory failure. He was given a dose of IV Lasix with improvement. He is presently stable and without complaint. He is not having chest pain. He has chronic atrial fibrillation. The rate remains adequately controlled presently. He is chronically anticoagulated and having no bleeding problems. There is no history of stroke or TIA. Cardiac catheterization in 2011 showed normal coronary arteries. Echocardiogram in April showed normal LV systolic function. Diastolic function could not be evaluated due to underlying atrial fibrillation. PAST MEDICAL HISTORY: 1. Chronic atrial fibrillation. 2. Hypercoagulable state due to chronic atrial fibrillation. 3. Chronic anticoagulation. 4. Diastolic heart failure. 5. Hypertension. 6. Sleep apnea, intolerant to CPAP. 7. Type 2 diabetes mellitus. 8. Chronic renal insufficiency, stage 3. 9. Lower extremity cellulitis with chronic lower extremity swelling. SURGICAL HISTORY: Tonsillectomy. ALLERGIES: AMLODIPINE. HOME MEDICATIONS: Lasix 40 mg 2 tablets p.o. b.i.d., aspirin 81 mg daily, Xarelto 20 mg daily, linezolid 600 mg p.o. b.i.d., Flomax 0.4 mg at bedtime, [place] [address] CONSULTATION Name: JENNIFER NELSON Room: [address]#: [id number] Admission: 07/25/20 Attend Phys: Fallon De Santiago Discharge: Date of : 40 Report #: [id number] potassium chloride 10 mEq b.i.d., carvedilol 12.5 mg p.o. b.i.d., atorvastatin 10 mg daily, allopurinol 100 mg daily. FAMILY HISTORY: Noncontributory. SOCIAL HISTORY: The patient smoked cigars and cigarettes remotely, but not to any great extent. He does not drink alcohol. He has family that takes care of him. He lives with his . REVIEW OF SYSTEMS: Positive for nonproductive cough, orthopnea, paroxysmal nocturnal dyspnea and shortness of breath. He has chronic lower extremity swelling. He reports decreased appetite. He reports insomnia. He has joint pain without connective tissue disease. Otherwise, 14-point review of systems unremarkable. PHYSICAL EXAMINATION: VITAL SIGNS: Blood pressure 114/69, pulse is in the 70s and irregular. GENERAL: This is a pleasant elderly gentleman in no distress. Mood and affect appropriate. HEENT: Extraocular muscles intact. Mucous membranes are moist. NECK: Shows no jugular venous distention. CHEST: Reveals diminished breath sounds without wheezes, rales or rhonchi. CARDIOVASCULAR: Reveals an irregularly irregular rhythm without gallop or murmur. ABDOMEN: Reveals normal bowel sounds. The abdomen is soft, nontender. EXTREMITIES: Shows skin intact. There is 1+ edema to the knees bilaterally. LABORATORY DATA: A 12-lead EKG shows atrial fibrillation without acute change from previous studies. Chest x-ray shows no acute abnormality. There is mild cardiomegaly. Labs are reviewed. Sodium 132, potassium 3.6, chloride 96, bicarbonate 28, BUN 29, creatinine 1.6, serum glucose 154. LFTs are within normal limits. Troponin less than 0.06. NT-proBNP 808. White blood cell count 17.4, hemoglobin 12.2, platelet count 261,000. IMPRESSION AND RECOMMENDATIONS: 1. Chronic atrial fibrillation, rate adequately controlled. He is chronically anticoagulated with Xarelto and having no bleeding problems. 2. Hypercoagulable state due to atrial fibrillation. Continue chronic anticoagulation. 3. Chronic anticoagulation with Xarelto. The patient is [place] [address] CONSULTATION Name: LESLIEJENNIFER E Room: [address]#: [id number] Admission: 07/25/20 Attend Phys: César F. Sudholt, D Discharge: Date of : 40 Report #: [id number] 4. Acute on chronic diastolic heart failure, improved after IV diuresis. Consider the addition of metolazone 2 or 3 times weekly to his home regimen in an effort to improve diuresis at home. 5. Hypertension, adequately controlled on current regimen. 6. Hypoxic respiratory failure, improved on supplemental oxygen. No history of underlying lung disease from history. Suspect this is due to acute diastolic heart failure. <ELECTRONICALLY SIGNED> By: Damian Rider MD, FACC 07/27/20 1256 1022 [id number] Rider MD, FACC /nt
[2020-07-27 13:41] VITALS: BP 134/59
[2020-07-27 14:35] LABS: URINE BILIRUBIN NEGATIVE (Negative); URINE BLOOD 1+ (Negative); URINE CLARITY HAZY; URINE COLOR YELLOW; URINE GLUCOSE-RANDOM NEGATIVE (Negative); URINE KETONES NEGATIVE (Negative); URINE LEUKOCYTES-REFLEX TRACE (Negative); URINE NITRITE-REFLEX NEGATIVE (Negative); URINE PROTEIN NEGATIVE (Negative); URINE UROBILINOGEN 0.2 E.U./dl (0.2-1.0)
[2020-07-27 14:46] LABS: SQUAMOUS 0-3 Few /LPF (0-3)
[2020-07-27 14:47] LABS: BACTERIA-REFLEX None Seen /HPF (None Seen); CRYSTALS None Seen /LPF (None Seen); HYALINE CASTS 0-3 Few /LPF (None Seen); URINE RBC 0-2 Rare /HPF (0-2); URINE WBC-REFLEX 0-5 Rare /HPF (0-5)
[2020-07-27 16:20] VITALS: BP 137/59
[2020-07-28] VITALS: BP 155/64
[2020-07-28 04:00] VITALS: BP 154/77
[2020-07-28 05:17] LABS: CALCIUM 9.5 mg/dL (8.5-10.1); CREATININE 1.8 mg/dL (0.6-1.3); POTASSIUM 3.3 mmol/L (3.5-5.1)
[2020-07-28 08:00] VITALS: BP 149/75
[2020-07-28 11:30] VITALS: BP 184/90
[2020-07-28] MEDS ORDERED: AUGMENTIN 875-1 EACH PO (13:48)
[2020-07-28] MEDS ORDERED: PREDNISONE 10 M10 MG PO (13:48)
[2020-07-28 15:07] VITALS: BP 184/90
--- NOTE | 2020-07-28 15:08 | 2DMMODE ---
[place] [address] 2 D/M-MODE ECHOCARDIOGRAM Name: JENNIFER NELSON Room: [address] IN [facility]#: [id number] Admission: 07/25/20 Attend Phys: César Salas Discharge: Date of : 40 Date of Service: 07/28/20 1507 Report #: [id number] THIS REPORT FOR: cc: Todd Holden Bradley L. DO Blick, David R. MD [facility] ~ APPROVED REPORT Study performed: 07/28/2020 09:38:44 EXAM: Comprehensive 2D, Doppler, and color-flow Echocardiogram Patient Location: In-Patient Room #: [facility] Status: routine BSA: 2.11 HR: 75 bpm BP: 154/77 mmHg Rhythm: Atrial Fibrillation Other Information Study Quality: Good Indications Dyspnea 2D Dimensions IVSd: 15.12 (7-11mm) LVOT Diam: 20.23 (18-24mm) LVDd: 56.00 mm PWd: 14.34 (7-11mm) Ascending Ao: 37.59 (22-36mm) LVDs: 30.59 (25-40mm) Aortic Root: 37.09 mm Volumes Left Atrial Volume (Systole) LA ESV Index: 51.30 mL/m2 Aortic Valve AoV Peak Canelo.: 1.30 m/s AO Peak Gr.: 6.78 mmHg LVOT Max P.64 mmHg AO Mean Gr.: 3.65 mmHg LVOT Mean P.15 mmHg LVOT Max V: 1.08 m/s AO V2 VTI: 25.04 cm LVOT Mean V: 0.67 m/s SKYLER (VTI): 2.80 cm2 LVOT V1 VTI: 21.79 [place] [address] 2 D/M-MODE ECHOCARDIOGRAM Name: JENNIFER NELSON Room: [address]#: [id number] Admission: 07/25/20 Attend Phys: Cséar Salas Discharge: Date of : 40 Date of Service: 07/28/20 1507 Report #: [id number] Pulmonary Valve PV Peak Canelo.: 0.86 m/s PV Peak Gr.: 2.93 mmHg Tricuspid Valve RAP Estimate: 5.00 mmHg TR Peak Gr.: 29.45 mmHg RVSP: 34.00 mmHg PA Pressure: 34.00 mmHg Left Ventricle The left ventricle is normal size. There is normal LV segmental wall motion. Moderate concentric left ventricular hypertrophy. Left ventricular systolic function is normal. The left ventricular ejection fraction is within the normal range. LVEF is 55-60%. This study is not technically sufficient to allow evaluation of the LV diastolic function due to atrial fibrillation. Right Ventricle The right ventricle is normal size. The right ventricular systolic function is normal. Atria Left atrium is severely dilated. Right atrium is mildly dilated. Aortic Valve Mild aortic valve sclerosis. Trace aortic regurgitation. There is no aortic valvular stenosis. Mitral Valve The mitral valve is normal in structure. Trace mitral regurgitation. No evidence of mitral valve stenosis. Tricuspid Valve The tricuspid valve is normal in structure. Trace tricuspid regurgitation. estimated pa pressure 40 mm Hg Pulmonic Valve The pulmonary valve is normal in structure. Trace pulmonic regurgitation. Great Vessels The aortic root is normal in size. IVC is normal in size and collapses >50% with inspiration. Pericardium There is [place] [address] 2 D/M-MODE ECHOCARDIOGRAM Name: LESLIEJENNIFER Room: [address] IN ..#: [id number] Admission: 07/25/20 Attend Phys: César Salas Discharge: Date of : 40 Date of Service: 07/28/20 1507 Report #: [id number] <Conclusion> Moderate concentric left ventricular hypertrophy. LVEF is 55-60%. Left atrium is severely dilated. Mild aortic valve sclerosis. Right atrium is mildly dilated. Trace tricuspid regurgitation. estimated pa pressure 40 mm Hg <ELECTRONICALLY SIGNED> By: Frederic Hewitt MD, ASHWIN 07/28/20 1507 150 150 Frederic Hewitt MD, ASHWIN /INF
== END 2020-07-28 17:00 | disposition home or self-care (01) | DRG 177 ==
LOC: M.ERS 10:33 → M.2W 12:50 → M.TBA-ER 12:50 → M.2W 16:40
PROVIDERS: Family Medicine; Internal Medicine Cardiovascular Disease; ADMIT Internal Medicine; ATTEND Internal Medicine
DX: J15.6 Pneumonia due to other Gram-negative bacteria (principal); N17.0 Acute kidney failure with tubular necrosis; I50.43 Acute on chronic combined systolic (congestive) and diastolic (congestive) heart failure; J96.21 Acute and chronic respiratory failure with hypoxia; I13.0 Hypertensive heart and chronic kidney disease with heart failure and stage 1 through stage 4 chronic kidney disease, or unspecified chronic kidney disease; J44.0 Chronic obstructive pulmonary disease with (acute) lower respiratory infection; J44.1 Chronic obstructive pulmonary disease with (acute) exacerbation; I48.20 Chronic atrial fibrillation, unspecified; D68.69 Other thrombophilia; N39.0 Urinary tract infection, site not specified; E11.22 Type 2 diabetes mellitus with diabetic chronic kidney disease; N18.30 Chronic kidney disease, stage 3 unspecified; J20.9 Acute bronchitis, unspecified; G47.30 Sleep apnea, unspecified; M10.9 Gout, unspecified; Z20.828 Contact with and (suspected) exposure to other viral communicable diseases; Z79.82 Long term (current) use of aspirin; Z79.899 Other long term (current) drug therapy; Z88.8 Allergy status to other drugs, medicaments and biological substances; Z87.891 Personal history of nicotine dependence

== ENCOUNTER 2021-01-15 10:31 | Inpatient (IN) | payer OTHER ==
[~2021-01-15] VITALS: Ht 180.3 cm; Wt 137.8 kg
[~2021-01-15 10:31] MED LIST changes: +AUGMENTIN 875-1 EACH PO
[2021-01-15 10:37] VITALS: BP 123/69
[2021-01-15] MEDS ORDERED: MAGNESIUM250 M1 PO (10:46)
[2021-01-15] MEDS ORDERED: METOLAZONE 2.52.5 M1 PO (10:46)
[2021-01-15] MEDS ORDERED: CEPHALEXIN500 MG PO (10:46)
[2021-01-15] MEDS ORDERED: VITAMIN C500 M2 PO (10:46)
[2021-01-15] MEDS ORDERED: PROTONIX40 M2 PO (10:47)
[2021-01-15] MEDS ORDERED: SENNA PLUS TAB1 EACH PO (10:47)
[2021-01-15] MEDS ORDERED: XARELTO20 MG PO (10:47)
[2021-01-15] MEDS ORDERED: TYLENOL325 M1 PO (10:47)
[2021-01-15] MEDS ORDERED: ULTRAM50 MG PO (10:48)
[2021-01-15 11:19] LABS: ABSOLUTE BASOPHILS 0.1 thou/uL (0.0-0.2); ABSOLUTE EOSINOPHILS 0.1 thou/uL (0.0-0.7); ABSOLUTE LYMPHOCYTES 0.9 thou/uL (0.8-5.3); ABSOLUTE MONOCYTES 0.9 thou/uL (0.0-1.2); ABSOLUTE NEUTROPHILS 12.4 thou/uL (1.6-8.1); BASOPHILS 0.8 %; EOSINOPHILS 0.5 %; HEMATOCRIT 35.3 % (42.0-52.0); HEMOGLOBIN 11.4 gm/dL (14.0-18.0); LYMPHOCYTES 6.5 %; MCHC 32.3 g/dL (28.0-37.0); MCV 92.8 fL (80.0-100.0); MONOCYTES 5.9 %; MPV 7.6 fl. (7.2-11.1); NUCLEATED RBCS 0 /100WBC; PLATELET COUNT* 419 thou/uL (150-400); POLYS 86.3 %; RBC 3.81 mil/uL (4.50-6.00); RDW-CV 18.4 % (10.5-14.5); WBC 14.4 thou/uL (4.0-11.0)
[2021-01-15 11:29] LABS: CALCIUM 9.1 mg/dL (8.5-10.1); CREATININE 1.5 mg/dL (0.6-1.3); POTASSIUM 3.1 mmol/L (3.5-5.1)
[2021-01-15 11:37] LABS: ALBUMIN 2.9 g/dL (3.4-5.0); TOTAL BILIRUBIN 0.4 mg/dL (<0.1-1.0); TOTAL PROTEIN 7.4 g/dL (6.4-8.2)
[2021-01-15 12:03] LABS: URINE BILIRUBIN NEGATIVE (Negative); URINE BLOOD 3+ (Negative); URINE CLARITY CLEAR; URINE COLOR YELLOW; URINE GLUCOSE-RANDOM NEGATIVE (Negative); URINE KETONES NEGATIVE (Negative); URINE LEUKOCYTES-REFLEX TRACE (Negative); URINE NITRITE-REFLEX NEGATIVE (Negative); URINE PROTEIN NEGATIVE (Negative); URINE UROBILINOGEN 0.2 E.U./dl (0.2-1.0)
[2021-01-15 12:11] LABS: BACTERIA-REFLEX 1-9 Few /HPF (None Seen); CASTS None Seen /LPF (None Seen); CRYSTALS None Seen /LPF (None Seen); MUCUS 0-3 Light strn/LPF (None Seen); SQUAMOUS 0-3 Few /LPF (0-3); URINE WBC-REFLEX 0-5 Rare /HPF (0-5)
[2021-01-15 13:48] VITALS: BP 139/70
[2021-01-15 14:30] VITALS: BP 128/52
--- NOTE | 2021-01-15 14:51 | EKG ---
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 : 1940 Requested By: Jass Santos Order Number: [id number] MD: Frederic Hewitt Measurements Intervals [place] Rate: 91 P: ME: QRS: 9 QRSD: 106 T: 30 QT: 363 QTc: 447 Interpretive Statements Atrial fibrillation Probable septal infarct, recent artifact noted Lateral leads are also involved Compared to ECG 07/25/2020 10:50:38 no change Electronically Signed On 01-15-2021 14:51:12 CDT by Frederic Hewitt [email or web address] <ELECTRONICALLY SIGNED> By: Frederic Hewitt MD, [facility] 01/15/21 1451 1034 1034 Frederic Hewitt MD, [facility] /EPI
[2021-01-15 19:30] VITALS: BP 128/74
[2021-01-15] MEDS ORDERED: NEURONTIN100 MG PO (21:51)
[2021-01-16 00:13] VITALS: BP 171/87
[2021-01-16 04:37] VITALS: BP 136/74
[2021-01-16 04:40] LABS: HEMATOCRIT 36.3 % (42.0-52.0); HEMOGLOBIN 11.8 gm/dL (14.0-18.0); MCH 30.3 pg (26.0-34.0); MCHC 32.7 g/dL (28.0-37.0); MCV 92.7 fL (80.0-100.0); MPV 8.4 fl. (7.2-11.1); RBC 3.91 mil/uL (4.50-6.00); RDW-CV 18.4 % (10.5-14.5); WBC 11.9 thou/uL (4.0-11.0)
[2021-01-16 04:53] LABS: ALBUMIN 2.7 g/dL (3.4-5.0); CALCIUM 8.9 mg/dL (8.5-10.1); CREATININE 1.4 mg/dL (0.6-1.3); MAGNESIUM 2.1 mg/dL (1.8-2.4); POTASSIUM 3.2 mmol/L (3.5-5.1); TOTAL BILIRUBIN 0.4 mg/dL (<0.1-1.0); TOTAL PROTEIN 6.9 g/dL (6.4-8.2)
[2021-01-16 08:22] VITALS: BP 133/63
[2021-01-16 11:51] VITALS: BP 122/66
[2021-01-16 17:17] VITALS: BP 118/37
[2021-01-17 01:15] VITALS: BP 122/47
[2021-01-17 04:49] VITALS: BP 125/50
[2021-01-17 06:20] LABS: ALBUMIN 2.4 g/dL (3.4-5.0); CALCIUM 8.9 mg/dL (8.5-10.1); CREATININE 1.3 mg/dL (0.6-1.3); TOTAL BILIRUBIN 0.2 mg/dL (<0.1-1.0); TOTAL PROTEIN 6.5 g/dL (6.4-8.2)
[2021-01-17 08:00] VITALS: BP 123/55
[2021-01-17 12:00] VITALS: BP 128/58
[2021-01-17 17:01] VITALS: BP 104/71
[2021-01-17 20:00] VITALS: BP 124/60
[2021-01-18 00:24] VITALS: BP 118/61
[2021-01-18 04:31] VITALS: BP 120/65
[2021-01-18 07:06] LABS: HEMATOCRIT 33.9 % (42.0-52.0); MCH 30.3 pg (26.0-34.0); MCHC 32.5 g/dL (28.0-37.0); MCV 93.2 fL (80.0-100.0); MPV 8.7 fl. (7.2-11.1); RBC 3.64 mil/uL (4.50-6.00); RDW-CV 18.1 % (10.5-14.5); WBC 11.1 thou/uL (4.0-11.0)
[2021-01-18 07:18] LABS: ALBUMIN 2.4 g/dL (3.4-5.0); CALCIUM 9.2 mg/dL (8.5-10.1); CREATININE 1.5 mg/dL (0.6-1.3); POTASSIUM 3.3 mmol/L (3.5-5.1); TOTAL BILIRUBIN 0.3 mg/dL (<0.1-1.0); TOTAL PROTEIN 6.7 g/dL (6.4-8.2)
[2021-01-18 07:24] LABS: MAGNESIUM 1.6 mg/dL (1.8-2.4)
[2021-01-18 08:00] VITALS: BP 122/64
[2021-01-18 13:28] VITALS: BP 136/68
[2021-01-18 17:08] VITALS: BP 132/82
[2021-01-19 00:03] VITALS: BP 121/61
[2021-01-19 08:10] VITALS: BP 116/81
[2021-01-19 12:19] VITALS: BP 122/53
[2021-01-19 16:00] VITALS: BP 122/64
[2021-01-19 20:00] VITALS: BP 166/77
[2021-01-19 23:44] VITALS: BP 152/98
[2021-01-20 08:30] VITALS: BP 145/50
[2021-01-20] MEDS ORDERED: LIDOPATCH1 EACH TOP (08:59)
[2021-01-20] MEDS ORDERED: LEVOFLOXACIN500 MG PO (08:59)
[2021-01-20 09:35] VITALS: BP 152/98
[2021-01-20 13:41] VITALS: BP 152/98
== END 2021-01-20 14:22 | disposition home health service (06) | DRG 177 ==
LOC: M.ERS 10:31 → M.2W 12:21 → M.TBA-ER 12:21 → M.2W 14:28 → M.ORTHSURG 01-20 08:20
PROVIDERS: Emergency Medicine Emergency Medical Services; ADMIT Internal Medicine; ATTEND Internal Medicine
DX: J15.6 Pneumonia due to other Gram-negative bacteria (principal); G92 Toxic encephalopathy; J96.21 Acute and chronic respiratory failure with hypoxia; N39.0 Urinary tract infection, site not specified; I50.32 Chronic diastolic (congestive) heart failure; B96.89 Other specified bacterial agents as the cause of diseases classified elsewhere; M10.9 Gout, unspecified; I48.91 Unspecified atrial fibrillation; I11.0 Hypertensive heart disease with heart failure; Z20.822 Contact with and (suspected) exposure to COVID-19; Z88.8 Allergy status to other drugs, medicaments and biological substances; Z79.82 Long term (current) use of aspirin; Z79.01 Long term (current) use of anticoagulants; Z79.899 Other long term (current) drug therapy; Z87.891 Personal history of nicotine dependence